=== PATIENT | female | born 1980 | race African-American/Black ===

== ENCOUNTER 2016-11-24 06:28 | Emergency (ER) | payer SELFPAY ==
[2016-11-24] MEDS ORDERED: NORMAL SALINE 1000 ML 1,000 ML IV ONE ×2 (06:58)
[2016-11-24] MEDS ORDERED: METOCLOPRAMIDE HCL INJ/PF 10 MG/2 ML SDV IV ONE (06:59)
[2016-11-24] MEDS ORDERED: MORPHINE SULFATE 10 MG/ML INJ IV ONE (06:59)
[2016-11-24] MEDS ORDERED: DIPHENHYDRAMINE HCL 50 MG/ML VIAL IV ONE (06:59)
[2016-11-24 07:12] LABS: ABSOLUTE LYMPHOCYTES (AUTO) 1.9 10^3/uL (0.5-4.7); ABSOLUTE MONOCYTES (AUTO) 0.3 10^3/uL (0.1-1.4); ABSOLUTE NEUT (AUTO) 7.2 10^3/uL (1.7-8.2); BASOPHILS % (AUTO) 0.3 % (0-2); HEMATOCRIT 44.1 % (36.0-47.0); HEMOGLOBIN 14.5 g/dL (12.0-15.5); HGB HCT DIFFERENCE -0.6; LYMPHOCYTES % (AUTO) 19.8 % (13-45); MEAN CORPUSCULAR HEMOGLOBIN 29.4 pg (27.0-33.4); MEAN CORPUSCULAR VOLUME 89 fl (80-97); MONOCYTES % (AUTO) 3.3 % (3-13); RED BLOOD COUNT 4.95 10^6/uL (3.72-5.28); RED CELL DISTRIBUTION WIDTH 13.2 % (11.5-14.0); SEGMENTED NEUTROPHILS % (AUTO) 76.6 % (42-78); WHITE BLOOD COUNT 9.4 10^3/uL (4.0-10.5)
[2016-11-24 07:24] LABS: ALANINE AMINOTRANSFERASE 29 U/L (9-52); ALBUMIN 4.8 g/dL (3.5-5.0); ALKALINE PHOSPHATASE 70 U/L (38-126); ANION GAP 16 (5-19); ASPARTATE AMINO TRANSFERASE 24 U/L (14-36); BILIRUBIN,TOTAL 0.9 mg/dL (0.2-1.3); BLOOD UREA NITROGEN 13 mg/dL (7-20); CALCIUM 10.6 mg/dL (8.4-10.2); CARBON DIOXIDE 24 mmol/L (22-30); CHLORIDE 101 mmol/L (98-107); CREATININE RESULT 0.88 mg/dL (0.52-1.25); GLUCOSE 129 mg/dL (75-110); POTASSIUM 3.5 mmol/L (3.6-5.0)
[2016-11-24] MEDS ORDERED: FAMOTIDINE INJ/PF 20 MG/2 ML SDV IV ONE (07:45)
--- NOTE | 2016-11-24 07:47 | ER Document Report ---
ED General - General Chief Complaint: Nausea/Vomiting/Diarrhea Stated Complaint: NAUSEA,VOMITING TRAVEL OUTSIDE OF THE [place] IN LAST 30 DAYS: No - HPI Patient complains to provider of: nausea vomiting diarrhea epigastric abdominal pain Notes: Patient coming in with nausea vomiting diarrhea ongoing since last night after eating a sotelo sandwich. Patient also states night prior to arrival did have 2 shots of alcohol. Patient denies any abdominal surgeries in the past except for C-sections. Patient states having nausea vomiting diarrhea no recent antibiotics no recent travel. Patient denies any past medical history. Denies any sick contacts - Related Data Allergies/Adverse Reactions: Penicillins Allergy (Intermediate, Verified 11/24/16 08:48) vomiting and hives Sulfa (Sulfonamide Antibiotics) Adverse Reaction (Verified 11/24/16 08:48) Past Medical History - Social History Smoking Status: Unknown if Ever Smoked Family History: Reviewed & Not Pertinent Pulmonary Medical History: Denies: Hx Tuberculosis Neurological Medical History: Reports: Hx Migraine, Hx Seizures - x1 with Renal/ Medical History: Denies: Hx Peritoneal Dialysis GI Medical History: Reports: Hx Gastroesophageal Reflux Disease. Denies: Hx Gastritis Past Surgical History: Reports: Hx Section, Hx Tubal Ligation. Denies : Hx Pacemaker - Immunizations Hx Diphtheria, Pertussis, Tetanus Vaccination: Yes Review of Systems - Review of Systems Constitutional: No symptoms reported EENT: No symptoms reported Cardiovascular: No symptoms reported Respiratory: No symptoms reported Gastrointestinal: Abdominal pain, Nausea, Vomiting Genitourinary: No symptoms reported Female Genitourinary: No symptoms reported Musculoskeletal: No symptoms reported Skin: No symptoms reported Hematologic/Lymphatic: No symptoms reported Neurological/Psychological: No symptoms reported -: Yes All other systems reviewed and negative Physical Exam - Vital signs Vitals: Temp Pulse Resp BP Pulse Ox 98.3 F 58 L 16 125/61 99 11/24/16 07:23 11/24/16 07:23 11/24/16 07:23 11/24/16 07:23 11/24/16 07:23 Interpretation: Normal - General General appearance: Appears well, Alert - HEENT Head: Normocephalic, Atraumatic Eyes: Normal Pupils: PERRL - Respiratory Respiratory status: No respiratory distress Chest status: Nontender Breath sounds: Normal Chest palpation: Normal - Cardiovascular Rhythm: Regular Heart sounds: Normal auscultation Murmur: No - Abdominal Inspection: Normal Distension: No distension Bowel sounds: Normal Tenderness: Tender - Mild epigastric tenderness to palpation. No right upper quadrant tenderness.. No: McBurney's point, Han's sign, Guarding, Rebound Organomegaly: No organomegaly - Back Back: Normal, Nontender - Extremities General upper extremity: Normal inspection, Nontender, Normal color, Normal ROM , Normal temperature General lower extremity: Normal inspection, Nontender, Normal color, Normal ROM , Normal temperature, Normal weight bearing. No: Melanie's sign - Neurological Neuro grossly intact: Yes Cognition: Normal Orientation: AAOx4 Terence Coma Scale Eye Opening: Spontaneous Terence Coma Scale Verbal: Oriented [place] Coma Scale Motor: Obeys Commands [place] Coma Scale Total: 15 Speech: Normal Motor strength normal: LUE, RUE, LLE, RLE Sensory: Normal - Psychological Associated symptoms: Normal affect, Normal mood - Skin Skin Temperature: Warm Skin Moisture: Dry Skin Color: Normal Course - Re-evaluation Re-evalutation: 11/24/16 14:55 The patient presents with n/v/d without signs of peritonitis or other life- threatening or serious etiology. The patient appears stable for discharge and has been instructed to return immediately if the symptoms worsen in any way, or in 8-12hr if not improved for re-evaluation. The patient has been instructed to return if the symptoms worsen or change in any way.. - Vital Signs Vital signs: Temp Pulse Resp BP Pulse Ox 98.3 F 68 16 114/72 99 11/24/16 07:23 11/24/16 09:25 11/24/16 09:25 11/24/16 09:25 11/24/16 09:25 - Laboratory Result Diagrams: 11/24/16 06:45 11/24/16 06:45 Laboratory results interpreted by me: 11/24/16 06:45 Potassium 3.5 L Glucose 129 H Calcium 10.6 H Discharge - Discharge Clinical Impression: Epigastric abdominal pain, Nausea vomiting and diarrhea Condition: Good Disposition: HOME, SELF-CARE Instructions: Abdominal Pain ([facility]), Gastritis ([facility]), Gastroenteritis (adult) ( [facility]) Additional Instructions: Please take medication as prescribed. Please observe a clear liquid diet for the next 12-24 hours. These avoid any food that is fried heavy and grease all or fat. Follow-up with your doctor next 3-5 days. Prescriptions: Dicyclomine HCl [Bentyl 20 mg Tablet] 20 mg PO QID #20 tablet Famotidine [Pepcid 20 mg Tablet] 20 mg PO BID #14 tablet Metoclopramide HCl [Reglan] 5 mg PO Q6 #30 tablet Forms: Return to Work
[2016-11-24 09:26] VITALS: BP 114/72
== END 2016-11-24 09:36 | disposition home or self-care (01) ==
LOC: ER 06:28
DX: R10.13 Epigastric pain (principal); R11.2 Nausea with vomiting, unspecified; R19.7 Diarrhea, unspecified; Z88.0 Allergy status to penicillin; Z88.2 Allergy status to sulfonamides; Z98.51 Tubal ligation status
CPT/HCPCS: 99284; 96374; 96375; 36415; 83690; 84703; 85025; 80053; J1200; J2765; J2270; J7030; S0028

== ENCOUNTER 2016-12-15 19:06 | Emergency (ER) | payer SELFPAY ==
--- NOTE | 2016-12-15 19:14 | ER Document Report ---
ED Medical Screen (RME) - General Stated Complaint: VOMITING AND DIARRHEA Notes: 36 yo female n/v/d since 0900 today. pt was seen for same earlier this month, Dx with colitis. pt received 250ml bolus and zofran 4mg IV TRAVEL OUTSIDE OF THE [place] IN LAST 30 DAYS: No - Related Data Allergies/Adverse Reactions: Penicillins Allergy (Intermediate, Verified 11/24/16 08:48) vomiting and hives Sulfa (Sulfonamide Antibiotics) Adverse Reaction (Verified 11/24/16 08:48) Past Medical History - Social History Family history: Reviewed & Not Pertinent Pulmonary Medical History: Denies: Hx Tuberculosis Neurological Medical History: Reports: Hx Migraine, Hx Seizures - x1 with Renal/ Medical History: Denies: Hx Peritoneal Dialysis GI Medical History: Reports: Hx Gastroesophageal Reflux Disease. Denies: Hx Gastritis Past Surgical History: Reports: Hx Section, Hx Tubal Ligation. Denies : Hx Pacemaker - Immunizations Hx Diphtheria, Pertussis, Tetanus Vaccination: Yes
== END 2016-12-15 19:27 | disposition left against medical advice (07) ==
LOC: ER 19:06
DX: R11.2 Nausea with vomiting, unspecified (principal); R19.7 Diarrhea, unspecified; Z87.19 Personal history of other diseases of the digestive system; Z88.0 Allergy status to penicillin; Z88.2 Allergy status to sulfonamides; Z53.20 Procedure and treatment not carried out because of patient's decision for unspecified reasons
CPT/HCPCS: 99281

== ENCOUNTER 2016-12-16 09:07 | Emergency (ER) | payer SELFPAY ==
[2016-12-16] MEDS ORDERED: ONDANSETRON HCL INJ/PF 4 MG/2 ML SDV IV ONE ×2 (10:47→14:26)
[2016-12-16] MEDS ORDERED: MORPHINE SULFATE 10 MG/ML INJ IV ONE (10:47)
[2016-12-16 11:36] LABS: APPEARANCE,URINE SLIGHTLY-CLOUDY; BILIRUBIN,URINE NEGATIVE (NEGATIVE); GLUCOSE, URINE NEGATIVE (NEGATIVE); KETONES,URINE 80 mg/dL (NEGATIVE); LEUKOCYTE ESTERASE,URINE NEGATIVE (NEGATIVE); NITRITE,URINE POSITIVE (NEGATIVE); PROTEIN,URINE 100 mg/dL (NEGATIVE); URINE SPECIFIC GRAVITY 1.032; UROBILINOGEN,URINE NEGATIVE mg/dL (<2.0)
[2016-12-16] MEDS ORDERED: CIPROFLOXACIN 200 MG/D5W RTU 100 ML IV ONE (11:45)
[2016-12-16] MEDS: NORMAL SALINE 1000 ML 1,000 ML IV PRN ×2 (12:03→13:14)
[2016-12-16 13:18] LABS: ABSOLUTE LYMPHOCYTES (AUTO) 1.3 10^3/uL (0.5-4.7); ABSOLUTE MONOCYTES (AUTO) 0.4 10^3/uL (0.1-1.4); BASOPHILS % (AUTO) 0.3 % (0-2); HEMATOCRIT 42.7 % (36.0-47.0); HEMOGLOBIN 14.1 g/dL (12.0-15.5); HGB HCT DIFFERENCE -0.4; LYMPHOCYTES % (AUTO) 17.2 % (13-45); MEAN CORPUSCULAR HEMOGLOBIN 29.2 pg (27.0-33.4); MEAN CORPUSCULAR VOLUME 88 fl (80-97); MONOCYTES % (AUTO) 4.8 % (3-13); RED BLOOD COUNT 4.83 10^6/uL (3.72-5.28); RED CELL DISTRIBUTION WIDTH 13.5 % (11.5-14.0); SEGMENTED NEUTROPHILS % (AUTO) 77.7 % (42-78); WHITE BLOOD COUNT 7.7 10^3/uL (4.0-10.5)
[2016-12-16 13:39] LABS: ALANINE AMINOTRANSFERASE 34 U/L (9-52); ALBUMIN 4.4 g/dL (3.5-5.0); ALKALINE PHOSPHATASE 60 U/L (38-126); ANION GAP 15 (5-19); ASPARTATE AMINO TRANSFERASE 16 U/L (14-36); BILIRUBIN,DIRECT 0.2 mg/dL (0.0-0.4); BILIRUBIN,TOTAL 0.6 mg/dL (0.2-1.3); BLOOD UREA NITROGEN 12 mg/dL (7-20); CARBON DIOXIDE 22 mmol/L (22-30); CHLORIDE 105 mmol/L (98-107); CREATININE RESULT 0.83 mg/dL (0.52-1.25); GLUCOSE 98 mg/dL (75-110); POTASSIUM 4.1 mmol/L (3.6-5.0); SODIUM 142.4 mmol/L (137-145); TOTAL PROTEIN 6.8 g/dL (6.3-8.2)
[2016-12-16 13:40] LABS: CALCIUM 9.3 mg/dL (8.4-10.2)
--- NOTE | 2016-12-16 15:03 | ER Document Report ---
ED General - General Chief Complaint: Abdominal Injury Stated Complaint: FLU LIKE SYMPTOMS TRAVEL OUTSIDE OF THE [place] IN LAST 30 DAYS: No - Related Data Allergies/Adverse Reactions: Penicillins Allergy (Intermediate, Verified 12/16/16 09:22) vomiting and hives Sulfa (Sulfonamide Antibiotics) Adverse Reaction (Verified 12/16/16 09:22) Past Medical History - Social History Smoking Status: Current Every Day Smoker Chew tobacco use (# tins/day): No Frequency of alcohol use: None Drug Abuse: None Family History: Reviewed & Not Pertinent Patient has suicidal ideation: No Patient has homicidal ideation: No Pulmonary Medical History: Denies: Hx Tuberculosis Neurological Medical History: Reports: Hx Migraine, Hx Seizures - x1 with Renal/ Medical History: Denies: Hx Peritoneal Dialysis GI Medical History: Reports: Hx Gastroesophageal Reflux Disease. Denies: Hx Gastritis Past Surgical History: Reports: Hx Section, Hx Tubal Ligation. Denies : Hx Pacemaker - Immunizations Hx Diphtheria, Pertussis, Tetanus Vaccination: Yes Physical Exam - Vital signs Vitals: Temp Pulse Resp BP Pulse Ox 98.3 F 74 18 125/92 H 100 12/16/16 09:17 12/16/16 09:17 12/16/16 09:17 12/16/16 09:17 12/16/16 09:17 Course - Vital Signs Vital signs: Temp Pulse Resp BP Pulse Ox 98.3 F 74 18 125/92 H 100 12/16/16 09:17 12/16/16 09:17 12/16/16 09:49 12/16/16 09:17 12/16/16 09:17 - Laboratory Result Diagrams: 12/16/16 12:53 12/16/16 12:53 Laboratory results interpreted by me: 12/16/16 11:00 Urine Protein 100 H Urine Ketones 80 H Urine Nitrite POSITIVE H Discharge - Discharge Clinical Impression: Abdominal pain Qualifiers: Abdominal location: unspecified location Qualified Code(s): R10.9 - Unspecified abdominal pain Nausea & vomiting Qualifiers: Vomiting type: unspecified Vomiting Intractability: non-intractable Qualified Code(s): R11.2 - Nausea with vomiting, unspecified UTI (urinary tract infection) Qualifiers: Urinary tract infection type: acute cystitis Hematuria presence: without hematuria Qualified Code(s): N30.00 - Acute cystitis without hematuria Condition: Stable Disposition: HOME, SELF-CARE Instructions: Abdominal Pain ([facility]) Additional Instructions: Follow up with your physician tomorrow for further care or return to the ED IMMEDIATELY if symptoms worsen or new concerns occur Prescriptions: Ciprofloxacin HCl [Cipro 500 mg Tablet] 500 mg PO BID #14 tablet Naproxen 500 mg PO BID #20 tablet Ondansetron [Zofran Odt 4 mg Tablet] 1 - 2 tab PO Q4H PRN #15 tab.rapdis PRN Reason: For Nausea/Vomiting
[2016-12-16 15:16] VITALS: BP 128/68
== END 2016-12-16 15:16 | disposition home or self-care (01) ==
LOC: ER 09:07
DX: N30.00 Acute cystitis without hematuria (principal); R10.9 Unspecified abdominal pain; R11.2 Nausea with vomiting, unspecified; F17.200 Nicotine dependence, unspecified, uncomplicated; Z87.19 Personal history of other diseases of the digestive system; Z88.0 Allergy status to penicillin; Z88.2 Allergy status to sulfonamides; Z98.51 Tubal ligation status
CPT/HCPCS: 96376; 99283; 96361; 96375; 96365; 36415; 85025; 81025; 80053; 81001; J2270; J2405; J7030; J0744

== ENCOUNTER 2016-12-17 09:52 | Emergency (ER) | payer SELFPAY ==
[2016-12-17 10:09] VITALS: BP 148/91
[2016-12-17] MEDS ORDERED: ONDANSETRON 4 MG TAB.RAPDIS PO ONE ×2 (10:11→12:14)
--- NOTE | 2016-12-17 10:12 | ER Document Report ---
ED Medical Screen (RME) - General Chief Complaint: Vomiting Stated Complaint: VOMITING Notes: Patient complains of vomiting and diarrhea for 3 days. States fever of 99. Patient was seen here yesterday for same symptoms. States she is still unable to keep anything down. I have greeted and performed a rapid initial assessment of this patient. A comprehensive ED assessment and evaluation of the patient, analysis of test results and completion of the medical decision making process will be conducted by additional ED providers. TRAVEL OUTSIDE OF THE [place] IN LAST 30 DAYS: No - Related Data Allergies/Adverse Reactions: Penicillins Allergy (Intermediate, Verified 12/17/16 10:09) vomiting and hives Sulfa (Sulfonamide Antibiotics) Adverse Reaction (Verified 12/17/16 10:09) Past Medical History - Social History Family history: Reviewed & Not Pertinent Pulmonary Medical History: Denies: Hx Tuberculosis Neurological Medical History: Reports: Hx Migraine, Hx Seizures - x1 with Renal/ Medical History: Denies: Hx Peritoneal Dialysis GI Medical History: Reports: Hx Gastroesophageal Reflux Disease. Denies: Hx Gastritis Past Surgical History: Reports: Hx Section, Hx Tubal Ligation. Denies : Hx Pacemaker - Immunizations Hx Diphtheria, Pertussis, Tetanus Vaccination: Yes Physical Exam - Vital signs Vitals: Temp Pulse Resp BP Pulse Ox 98.2 F 55 L 14 148/91 H 100 12/17/16 10:08 12/17/16 10:08 12/17/16 10:08 12/17/16 10:08 12/17/16 10:08 Course - Vital Signs Vital signs: Temp Pulse Resp BP Pulse Ox 98.2 F 55 L 14 148/91 H 100 12/17/16 10:08 12/17/16 10:08 12/17/16 10:08 12/17/16 10:08 12/17/16 10:08
[2016-12-17] MEDS ORDERED: METOCLOPRAMIDE HCL INJ/PF 10 MG/2 ML SDV IV ONE (12:14)
[2016-12-17] MEDS ORDERED: NORMAL SALINE 1000 ML 2,000 ML IV ONE (12:14)
[2016-12-17] MEDS ORDERED: DIPHENHYDRAMINE HCL 50 MG/ML VIAL IV ONE (12:14)
[2016-12-17] MEDS ORDERED: PROMETHAZINE HCL 25 MG SUPP.RECT PR ONE (13:43)
--- NOTE | 2016-12-17 13:45 | ER Document Report ---
ED GI/ - General Chief Complaint: Vomiting Stated Complaint: VOMITING Time seen by provider: 12:40 Mode of Arrival: Ambulatory Information source: Patient Notes: 36 yo thin female c/o persistant vomiting. in eryesterday, got IV fluid and cipro for UTI. No culture sent. No abdominal pain. HCG negative. TRAVEL OUTSIDE OF THE [place] IN LAST 30 DAYS: No - Related Data Allergies/Adverse Reactions: Penicillins Allergy (Intermediate, Verified 12/17/16 10:09) vomiting and hives Sulfa (Sulfonamide Antibiotics) Adverse Reaction (Verified 12/17/16 10:09) Past Medical History - General Information source: Patient - Social History Smoking Status: Current Every Day Smoker Chew tobacco use (# tins/day): No Frequency of alcohol use: Occasional Drug Abuse: None Family History: Reviewed & Not Pertinent Patient has suicidal ideation: No Patient has homicidal ideation: No Pulmonary Medical History: Denies: Hx Tuberculosis Neurological Medical History: Reports: Hx Migraine, Hx Seizures - x1 with Renal/ Medical History: Denies: Hx Peritoneal Dialysis GI Medical History: Reports: Hx Gastroesophageal Reflux Disease. Denies: Hx Gastritis Past Surgical History: Reports: Hx Section, Hx Tubal Ligation. Denies : Hx Pacemaker - Immunizations Hx Diphtheria, Pertussis, Tetanus Vaccination: Yes Review of Systems - Review of Systems Constitutional: No symptoms reported EENT: No symptoms reported Cardiovascular: No symptoms reported Respiratory: No symptoms reported Gastrointestinal: See HPI Genitourinary: No symptoms reported Female Genitourinary: No symptoms reported Musculoskeletal: No symptoms reported Skin: No symptoms reported Hematologic/Lymphatic: No symptoms reported Neurological/Psychological: No symptoms reported Physical Exam - Vital signs Vitals: Temp Pulse Resp BP Pulse Ox 98.2 F 55 L 14 148/91 H 100 12/17/16 10:08 12/17/16 10:08 12/17/16 10:08 12/17/16 10:08 12/17/16 10:08 Interpretation: Normal - Notes Notes: curled in ball on left side - General General appearance: Appears well, Alert - HEENT Head: Normocephalic, Atraumatic Eyes: Normal Pupils: PERRL Mucous membranes: Normal Pharynx: Normal Neck: Supple - Respiratory Respiratory status: No respiratory distress Chest status: Nontender Breath sounds: Normal Chest palpation: Normal - Cardiovascular Rhythm: Regular Heart sounds: Normal auscultation Murmur: No - Abdominal Inspection: Normal Distension: No distension Bowel sounds: Normal Tenderness: Nontender. No: Tender Organomegaly: No organomegaly - Back Back: Normal, Nontender. No: CVA tenderness - Extremities General upper extremity: Normal inspection, Nontender, Normal color, Normal ROM , Normal temperature General lower extremity: Normal inspection, Nontender, Normal color, Normal ROM , Normal temperature, Normal weight bearing. No: Melanie's sign - Neurological Neuro grossly intact: Yes Cognition: Normal Orientation: AAOx4 Terence Coma Scale Eye Opening: Spontaneous [place] Coma Scale Verbal: Oriented [place] Coma Scale Motor: Obeys Commands [place] Coma Scale Total: 15 Speech: Normal Motor strength normal: LUE, RUE, LLE, RLE Sensory: Normal - Psychological Associated symptoms: Normal affect, Normal mood - Skin Skin Temperature: Warm Skin Moisture: Dry Skin Color: Normal Course - Re-evaluation Re-evalutation: 12/17/16 13:49 Patient states that she can't keep anything down but the urine is dilute that she obtained in the bathroom. I will give her some fluid and antiemetics. Added a urine drug screen because in the past she had used multiple substances in 2014. She states that she needs pain medication at this time. The physician that saw her yesterday and hydrated her did not prescribe pain medication nor will I and I told her that. 12/17/16 14:49 Keeping water down wants to go home 12/17/16 14:53 Patient was diagnosed with urinary tract infection yesterday but there is no bacteria in the urine today I did add a urine culture from the urine today and will DC the Cipro. No pending urine culture from yesterday. Patient stated that she did not keep the Cipro down. 12/17/16 15:01 Patient admits to snorting cocaine twice a week. no vomiting while in ER - Vital Signs Vital signs: Temp Pulse Resp BP Pulse Ox 99.1 F 63 16 148/91 H 98 12/17/16 15:06 12/17/16 15:06 12/17/16 15:06 12/17/16 10:08 12/17/16 15:06 - Laboratory Result Diagrams: 12/17/16 14:13 12/17/16 14:13 Laboratory results interpreted by me: 12/17/16 12/17/16 13:46 14:13 Seg Neutrophils % 85.8 H Lymphocytes % 12.1 L Monocytes % 1.6 L Urine Ketones 20 H Urine Blood SMALL H Discharge - Discharge Clinical Impression: vomiting, myalgias, Cocaine abuse Condition: Good Disposition: HOME, SELF-CARE Instructions: Myalagia (Muscle Pain) ([facility]), Nausea or Vomiting, Nonspecific ( [facility]), Cocaine Abuse ([facility]) Additional Instructions: continue to hydrate advance diet as tolerated urine culture is pending stop the cipro, your urine today did not show infection Return to the emergency room any concerns stop using cocaine Please complete the patient satisfaction survey if you get one, and return it.. If you do not receive a survey, then you can go to the [facility] website, [email or web address] and place your comments about your very good care. Thank you very much. It was a pleasure being your medical provider today. Prescriptions: Promethazine HCl [Phenergan 25 mg Supp.rect] 25 mg AR Q4HP PRN #24 supp.rect PRN Reason: Forms: Return to Work
[2016-12-17] MEDS ORDERED: MAG HYDROX/AL HYDROX/SIMETH SUSP 30 ML UDCUP PO ONE (13:47)
[2016-12-17] MEDS ORDERED: LIDOCAINE 2% VISCOUS SOLN 20 ML UDCUP PO ONE (13:47)
[2016-12-17] MEDS ORDERED: LANSOPRAZOLE 30 MG TAB.RAP.DR PO ONE (13:47)
[2016-12-17 14:10] LABS: APPEARANCE,URINE CLEAR; BILIRUBIN,URINE NEGATIVE (NEGATIVE); GLUCOSE, URINE NEGATIVE (NEGATIVE); KETONES,URINE 20 mg/dL (NEGATIVE); LEUKOCYTE ESTERASE,URINE NEGATIVE (NEGATIVE); NITRITE,URINE NEGATIVE (NEGATIVE); PROTEIN,URINE NEGATIVE (NEGATIVE); URINE SPECIFIC GRAVITY 1.011; UROBILINOGEN,URINE NEGATIVE mg/dL (<2.0)
[2016-12-17 14:24] LABS: ABSOLUTE LYMPHOCYTES (AUTO) 0.8 10^3/uL (0.5-4.7); ABSOLUTE MONOCYTES (AUTO) 0.1 10^3/uL (0.1-1.4); BASOPHILS % (AUTO) 0.4 % (0-2); EOSINOPHILS % (AUTO) 0.1 % (0-6); HEMATOCRIT 42.3 % (36.0-47.0); HEMOGLOBIN 14.1 g/dL (12.0-15.5); LYMPHOCYTES % (AUTO) 12.1 % (13-45); MEAN CORPUSCULAR HEMOGLOBIN 29.3 pg (27.0-33.4); MEAN CORPUSCULAR HGB CONC 33.3 g/dL (32.0-36.0); MEAN CORPUSCULAR VOLUME 88 fl (80-97); MONOCYTES % (AUTO) 1.6 % (3-13); RED BLOOD COUNT 4.79 10^6/uL (3.72-5.28); RED CELL DISTRIBUTION WIDTH 13.5 % (11.5-14.0); SEGMENTED NEUTROPHILS % (AUTO) 85.8 % (42-78)
[2016-12-17 14:45] LABS: URINE BARBITURATES SCREEN NEGATIVE; URINE METHADONE SCREEN NEGATIVE; URINE OPIATES LOW NEGATIVE; URINE PHENCYCLIDINE SCREEN NEGATIVE
[2016-12-17] MEDS ORDERED: CIPROFLOXACIN HCL 500 MG TABLET PO ONE (14:49)
[2016-12-17 14:56] LABS: ALANINE AMINOTRANSFERASE 34 U/L (9-52); ALBUMIN 4.9 g/dL (3.5-5.0); ALKALINE PHOSPHATASE 61 U/L (38-126); ANION GAP 14 (5-19); ASPARTATE AMINO TRANSFERASE 20 U/L (14-36); BILIRUBIN,DIRECT 0.2 mg/dL (0.0-0.4); BILIRUBIN,TOTAL 0.8 mg/dL (0.2-1.3); BLOOD UREA NITROGEN 10 mg/dL (7-20); CARBON DIOXIDE 25 mmol/L (22-30); CHLORIDE 103 mmol/L (98-107); GLUCOSE 104 mg/dL (75-110); POTASSIUM 4.1 mmol/L (3.6-5.0); SODIUM 142.1 mmol/L (137-145); TOTAL PROTEIN 7.6 g/dL (6.3-8.2)
== END 2016-12-17 15:07 | disposition home or self-care (01) ==
LOC: ER 09:52
DX: R11.10 Vomiting, unspecified (principal); F14.10 Cocaine abuse, uncomplicated; M79.1 Myalgia; F17.200 Nicotine dependence, unspecified, uncomplicated; Z88.0 Allergy status to penicillin; Z87.19 Personal history of other diseases of the digestive system; Z98.51 Tubal ligation status
CPT/HCPCS: 99283; 96361; 96374; 96375; 36415; 87086; 85025; 80053; 81001; 80307; J1200; S0119; J3490 ×2; J2765; J7030

== ENCOUNTER 2017-10-02 07:10 | Inpatient (IN) | payer MEDICAID ==
[2017-10-02] MEDS ORDERED: ONDANSETRON 4 MG TAB.RAPDIS PO ONE ×2 (07:28→11:56)
[2017-10-02] MEDS ORDERED: NORMAL SALINE 1000 ML 2,000 ML IV ONE (07:28)
--- NOTE | 2017-10-02 07:29 | ER Document Report ---
ED GI/ - General Chief Complaint: Nausea/Vomiting/Diarrhea Stated Complaint: ABDOMINAL PAIN,VOMITING Time Seen by Provider: 10/02/17 07:28 Mode of Arrival: Ambulatory Information source: Patient Notes: 37-year-old thin tobacco and crack smoker female complaining of epigastric and left upper quadrant pain since 7 PM last night, vomited all night with diarrhea. Took Kelsy-[place] and Imodium without relief. History of gastritis. No history of cholecystitis or pancreatitis. 2 C-sections. No fever. Menses - now. TRAVEL OUTSIDE OF THE [place] IN LAST 30 DAYS: No - Related Data Allergies/Adverse Reactions: Penicillins Allergy (Intermediate, Verified 10/02/17 07:13) vomiting and hives Sulfa (Sulfonamide Antibiotics) Adverse Reaction (Verified 10/02/17 07:13) Home Medications: Current Home Medications No Home Medications 10/02/17 [History] Past Medical History - General Information source: Patient - Social History Smoking Status: Current Every Day Smoker Frequency of alcohol use: None Drug Abuse: Cocaine - Crack Lives with: Family Family History: Reviewed & Not Pertinent Neurological Medical History: Reports: Hx Migraine, Hx Seizures - x1 with Renal/ Medical History: Denies: Hx Peritoneal Dialysis GI Medical History: Reports: Hx Gastritis, Hx Gastroesophageal Reflux Disease - egd dr villanueva 2 years ago, Hx Colonoscopy - dr villanueva - polyps Past Surgical History: Reports: Hx Section - x 2, Hx Tubal Ligation. Denies: Hx Pacemaker - Immunizations Hx Diphtheria, Pertussis, Tetanus Vaccination: Yes Review of Systems - Review of Systems Constitutional: No symptoms reported EENT: No symptoms reported Cardiovascular: No symptoms reported Respiratory: No symptoms reported Gastrointestinal: See HPI Genitourinary: No symptoms reported Female Genitourinary: No symptoms reported Musculoskeletal: No symptoms reported Skin: No symptoms reported Hematologic/Lymphatic: No symptoms reported Neurological/Psychological: No symptoms reported Physical Exam - Vital signs Vitals: Temp Pulse Resp BP Pulse Ox 98.1 F 56 L 20 144/87 H 100 10/02/17 07:15 10/02/17 07:15 10/02/17 07:15 10/02/17 07:15 10/02/17 07:15 Interpretation: Bradycardic Notes: emaciated - General General appearance: Alert - HEENT Head: Normocephalic, Atraumatic Eyes: Normal Conjunctiva: Normal Pupils: PERRL Mucous membranes: Dry Pharynx: Normal Neck: Supple. No: Lymphadenopathy - Respiratory Respiratory status: No respiratory distress Chest status: Nontender Breath sounds: Normal Chest palpation: Normal - Cardiovascular Rhythm: Regular Heart sounds: Normal auscultation Murmur: No - Abdominal Inspection: Normal Distension: No distension Bowel sounds: Normal Tenderness: Tender - epigastric, LUQ Organomegaly: No organomegaly - Back Back: Normal, Nontender. No: CVA tenderness - Extremities General upper extremity: Normal inspection, Nontender, Normal color, Normal ROM , Normal temperature General lower extremity: Normal inspection, Nontender, Normal color, Normal ROM , Normal temperature, Normal weight bearing. No: Melanie's sign - Neurological Neuro grossly intact: Yes Cognition: Normal Orientation: AAOx4 Terence Coma Scale Eye Opening: Spontaneous [place] Coma Scale Verbal: Oriented [place] Coma Scale Motor: Obeys Commands [place] Coma Scale Total: 15 Speech: Normal Motor strength normal: LUE, RUE, LLE, RLE Sensory: Normal - Psychological Associated symptoms: Normal affect, Normal mood - Skin Skin Temperature: Warm Skin Moisture: Dry Skin Color: Normal Skin irregularity: negative: Rash Course - Re-evaluation Re-evalutation: 10/02/17 08:53 pt denies IV drug use but multiple tiny crusted punctures sites in left arm veins, no recent hospitalization or blood draw per pt. Mother at bedside. 10/02/17 11:47 Urine not obtained until 1110 this morning. Her hem/chem labs are negative. 10/02/17 11:55 With mom not in the room patient admits to heroin IV drug use 3 weeks ago. Will try PO's mild nausea, feels better. Non tender abdomen. 10/02/17 12:41 no vomiting or diarrhea while in the ER, will send home with antiemetics. 10/02/17 13:42 pt vomiting again, IV fluid, reglan, benadryl and AAS ordered to check for ileus /obstruction. 10/02/17 16:17 will try pt on po's again, last cocaine and marijuana was tuesday, no heroin for 3 weeks - went through withdrawal at that time. 10/02/17 16:28 dr. belle will admit observation to medical floor. Very nauseated again after a few sips of PO's. 10/02/17 16:30 - Vital Signs Vital signs: Temp Pulse Resp BP Pulse Ox 99.7 F 60 16 139/86 H 100 10/02/17 14:00 10/02/17 14:00 10/02/17 14:00 10/02/17 14:00 10/02/17 14:00 - Laboratory Result Diagrams: 10/02/17 09:38 10/02/17 09:38 Laboratory results interpreted by me: 10/02/17 10/02/17 10/02/17 09:38 09:38 11:10 RDW 14.8 H Seg Neutrophils % 88.6 H Lymphocytes % 8.6 L Monocytes % 2.3 L Glucose 120 H Urine Ketones TRACE H Urine Blood SMALL H Discharge - Discharge Clinical Impression: Vomiting and diarrhea, Polysubstance abuse, Upper abdominal pain Intractable vomiting Qualifiers: Vomiting type: unspecified Nausea presence: with nausea Qualified Code(s): R11.2 - Nausea with vomiting, unspecified Condition: Stable Disposition: ADMITTED OBSERVATION Admitting Provider: Hospitalist Unit Admitted: Medical Floor Instructions: Antinausea Medication ([facility]), Diarrhea, Nonspecific ([facility]), Intravenous (IV) Fluids ([facility]), Vomiting ([facility]) Additional Instructions: continue to hydrate at home nausea medication as needed to er if worse stop using crack cocain and marijuana. see dr villanueva if recurs, persists Referrals: LIZA VILLANUEVA MD [ACTIVE STAFF] - Follow up as needed
[2017-10-02] MEDS ORDERED: LANSOPRAZOLE 30 MG TAB.RAP.DR PO ONE (07:42)
[2017-10-02] MEDS ORDERED: FAMOTIDINE INJ/PF 20 MG/2 ML SDV IV ONE (07:42)
[2017-10-02] MEDS ORDERED: MORPHINE SULFATE 10 MG/ML INJ IV ONE ×2 (07:43→13:52)
[2017-10-02 09:51] LABS: ABSOLUTE LYMPHOCYTES (AUTO) 0.6 10^3/uL (0.5-4.7); ABSOLUTE MONOCYTES (AUTO) 0.2 10^3/uL (0.1-1.4); ABSOLUTE NEUT (AUTO) 5.8 10^3/uL (1.7-8.2); BASOPHILS % (AUTO) 0.5 % (0-2); HEMATOCRIT 39.1 % (36.0-47.0); HEMOGLOBIN 12.8 g/dL (12.0-15.5); LYMPHOCYTES % (AUTO) 8.6 % (13-45); MEAN CORPUSCULAR HEMOGLOBIN 28.8 pg (27.0-33.4); MEAN CORPUSCULAR HGB CONC 32.7 g/dL (32.0-36.0); MEAN CORPUSCULAR VOLUME 88 fl (80-97); MONOCYTES % (AUTO) 2.3 % (3-13); PLATELET COUNT 273 10^3/uL (150-450); RED BLOOD COUNT 4.45 10^6/uL (3.72-5.28); RED CELL DISTRIBUTION WIDTH 14.8 % (11.5-14.0); SEGMENTED NEUTROPHILS % (AUTO) 88.6 % (42-78); TOTAL CELLS COUNTED % (AUTO) 100 %; WHITE BLOOD COUNT 6.6 10^3/uL (4.0-10.5)
[2017-10-02 10:07] LABS: ALANINE AMINOTRANSFERASE 39 U/L (9-52); ALKALINE PHOSPHATASE 60 U/L (38-126); ANION GAP 12 (5-19); ASPARTATE AMINO TRANSFERASE 15 U/L (14-36); BILIRUBIN,DIRECT 0.2 mg/dL (0.0-0.4); BILIRUBIN,TOTAL 0.4 mg/dL (0.2-1.3); BLOOD UREA NITROGEN 13 mg/dL (7-20); CALCIUM 9.2 mg/dL (8.4-10.2); CARBON DIOXIDE 24 mmol/L (22-30); CHLORIDE 107 mmol/L (98-107); GLUCOSE 120 mg/dL (75-110); LIPASE 23.3 U/L (23-300); POTASSIUM 4.4 mmol/L (3.6-5.0); SODIUM 142.5 mmol/L (137-145); TOTAL PROTEIN 6.9 g/dL (6.3-8.2)
[2017-10-02 10:09] LABS: ALCOHOL < 10 mg/dL (NONE DETECTED)
[2017-10-02 11:38] LABS: APPEARANCE,URINE CLEAR; BILIRUBIN,URINE NEGATIVE (NEGATIVE); COLOR,URINE YELLOW; GLUCOSE, URINE NEGATIVE (NEGATIVE); KETONES,URINE TRACE mg/dL (NEGATIVE); LEUKOCYTE ESTERASE,URINE NEGATIVE (NEGATIVE); NITRITE,URINE NEGATIVE (NEGATIVE); PROTEIN,URINE NEGATIVE (NEGATIVE); URINE SPECIFIC GRAVITY 1.017; UROBILINOGEN,URINE NEGATIVE mg/dL (<2.0)
[2017-10-02 11:52] LABS: URINE AMPHETAMINES SCREEN NEGATIVE; URINE BARBITURATES SCREEN NEGATIVE; URINE BENZODIAZEPINES SCREEN NEGATIVE; URINE COCAINE SCREEN UNCONFIRMED POSITIVE; URINE MARIJUANA (THC) SCREEN UNCONFIRMED POSITIVE; URINE METHADONE SCREEN NEGATIVE; URINE PHENCYCLIDINE SCREEN NEGATIVE
[2017-10-02] MEDS ORDERED: LIDOCAINE 2% VISCOUS SOLN 20 ML UDCUP PO ONE (13:12)
[2017-10-02] MEDS ORDERED: MAG HYDROX/AL HYDROX/SIMETH SUSP 30 ML UDCUP PO ONE (13:12)
[2017-10-02] MEDS ORDERED: METOCLOPRAMIDE HCL INJ/PF 10 MG/2 ML SDV IV ONE (13:41)
[2017-10-02] MEDS ORDERED: DIPHENHYDRAMINE HCL 50 MG/ML VIAL IV ONE (13:41)
[2017-10-02] MEDS ORDERED: NORMAL SALINE 1000 ML 1,000 ML IV ONE (13:42)
--- NOTE | 2017-10-02 14:26 | RADIOLOGY REPORT (SQ) ---
EXAM DESCRIPTION: ACUTE ABDOMEN SERIES COMPLETED DATE/TIME: 10/02/2017 2:19 pm REASON FOR STUDY: intractable vomiting COMPARISON: None. NUMBER OF VIEWS: Three views. TECHNIQUE: Frontal chest, supine abdomen and upright/decubitus abdomen radiographic images acquired. LIMITATIONS: None. FINDINGS: CHEST: Lungs clear of infiltrates. FREE AIR: None. No abnormal gas collections. BOWEL GAS PATTERN: Nonobstructive pattern. No dilated loops or air fluid levels. CALCIFICATIONS: No suspicious calcifications. HARDWARE: None in the abdomen. SOFT TISSUES: No gross mass or suggestion of organomegaly. BONES: No acute fracture. No worrisome bone lesions. OTHER: No other significant finding. IMPRESSION: NO RADIOGRAPHIC EVIDENCE FOR ACUTE ABDOMINAL DISEASE. TECHNICAL DOCUMENTATION: JOB ID: [id number] [employer]- All Rights Reserved
--- NOTE | 2017-10-02 15:38 | RADIOLOGY REPORT (SQ) ---
EXAM DESCRIPTION: U/S ABDOMEN LIMITED W/O DOP COMPLETED DATE/TIME: 10/02/2017 3:22 pm REASON FOR STUDY: Bilious vomiting, epigastric pain COMPARISON: CT abdomen and pelvis 12/03/2015. TECHNIQUE: Grayscale images acquired of the abdomen and recorded on PACS. Additional selected color Doppler and spectral images recorded. LIMITATIONS: Overlying bowel gas. FINDINGS: PANCREAS: The pancreas is partially obscured by overlying bowel gas. The visualized pancr eas in the midline is unremarkable. LIVER: The liver measures 14.9 cm. Echotexture normal. LIVER VASCULATURE: Normal directional flow of the main portal vein. GALLBLADDER: No stones. Normal wall thickness. No pericholecystic fluid. ULTRASOUND-DETECTED ROME'S SIGN: Negative. INTRAHEPATIC DUCTS AND COMMON DUCT: CBD and intrahepatic ducts normal caliber. INFERIOR VENA CAVA: Pa tent. AORTA: No aneurysm in the visualized segments. RIGHT KIDNEY: Measures 11.7 cm in length. Echotexture within normal limits. No hydronephrosis. PERITONEAL AND RIGHT PLEURAL SPACE: No ascites or effusion. IMPRESSION: No acute findings. No cholelithiasis or biliary ductal dilation. TECHNICAL DOCUMENTATION: JOB ID: [id number] [id number] [employer]- All Rights Reserved
[2017-10-02] MEDS ORDERED: ACETAMINOPHEN 325 MG TABLET PO PRN (17:10)
[2017-10-02] MEDS ORDERED: OLANZAPINE INJ/PF 10 MG SDV IM ONE (17:10)
[2017-10-02] MEDS ORDERED: ZOLPIDEM TARTRATE 5 MG TABLET PO PRN (17:10)
--- NOTE | 2017-10-02 17:57 | PDOC H&P ---
History of Present Illness Admission Date/PCP: 10/02/17 16:43 Patient complains of: Nausea, vomiting and watery diarrhea since yesterday History of Present Illness: JENNIFER CARPENTER is a 37 year old female presented to emergency room complaining of nausea, vomiting and diarrhea since yesterday at 7 PM. Patient denies any fever, chills or recent use of antibiotics. She had remain in emergency room for 7 hours but despite had not been able to tolerate oral intake. She admits that she had been using heroin but took herself off 3 weeks ago and went through withdrawal and accordingly is over it. However this week had been doing cocaine. Admits is under a lot of stress at home because of problems with her ex-. She has 4 children and 2 of them are in college. Since patient has not been able to tolerate oral intake our service was consulted and prompted to admit for further management. Past Medical History Cardiac Medical History: Reports: None Pulmonary Medical History: Denies: Tuberculosis EENT Medical History: Reports: None Neurological Medical History: Reports: Migraine, Seizures - x1 with Endocrine Medical History: Reports: None Renal/ Medical History: Reports: None Malignancy Medical History: Reports: None GI Medical History: Reports: None, Gastroesophageal Reflux Disease - egd dr villanueva 2 years ago Musculoskeltal Medical History: Reports: None Skin Medical History: Reports: None Psychiatric Medical History: Reports: Substance Abuse, Tobacco Dependency Traumatic Medical History: Reports: None Hematology: Reports: None Past Surgical History Past Surgical History: Reports: Section - x 2, Tubal Ligation Denies: Pacemaker Social History Lives with: Family Smoking Status: Current Every Day Smoker Hx Recreational Drug Use: No Hx Prescription Drug Abuse: No - Advance Directive Resuscitation Status: Full Code Family History Family History: Hypertension Parental Family History Reviewed: Yes Children Family History Reviewed: Yes Sibling(s) Family History Reviewed.: Yes Medication/Allergy Home Medications: No Home Medications 10/02/17 Allergies/Adverse Reactions: Penicillins Allergy (Intermediate, Verified 10/02/17 07:13) vomiting and hives Sulfa (Sulfonamide Antibiotics) Adverse Reaction (Verified 10/02/17 07:13) Review of Systems Constitutional: PRESENT: weakness Ears: PRESENT: hearing changes Nose, Mouth, and Throat: ABSENT: mouth pain, sore throat Cardiovascular: ABSENT: edema, orthropnea, palpitations Respiratory: ABSENT: cough, dyspnea Gastrointestinal: PRESENT: abdominal pain, diarrhea, nausea, vomiting Genitourinary: ABSENT: dysuria, hematuria Musculoskeletal: ABSENT: back pain, deformity, joint swelling Integumentary: ABSENT: pruritus, rash Neurological: ABSENT: focal weakness, numbness, paresthesias Psychiatric: PRESENT: depression Endocrine: ABSENT: menstrual abnormalities Hematologic/Lymphatic: ABSENT: easy bruising, lymphadenopathy Physical Exam Vital Signs: Temp Pulse Resp BP Pulse Ox 99.7 F 60 16 139/86 H 100 10/02/17 14:00 10/02/17 14:00 10/02/17 14:00 10/02/17 14:00 10/02/17 14:00 General appearance: PRESENT: no acute distress, cooperative, thin Head exam: PRESENT: atraumatic, normocephalic Eye exam: PRESENT: conjunctiva pink, EOMI, PERRLA Ear exam: PRESENT: normal external ear exam Mouth exam: PRESENT: dry mucosa Teeth exam: PRESENT: poor dentation Neck exam: PRESENT: full ROM. ABSENT: JVD, lymphadenopathy, tenderness, thyromegaly Respiratory exam: PRESENT: clear to auscultation camilo Cardiovascular exam: PRESENT: RRR. ABSENT: diastolic murmur, gallop, systolic murmur Vascular exam: PRESENT: normal capillary refill GI/Abdominal exam: PRESENT: normal bowel sounds, soft. ABSENT: distended, guarding, tenderness Extremities exam: PRESENT: full ROM. ABSENT: clubbing, joint swelling, pedal edema, tenderness Musculoskeletal exam: ABSENT: deformity, tenderness Neurological exam: PRESENT: alert, awake, oriented to person, oriented to place , oriented to time, oriented to situation, CN II-XII grossly intact Psychiatric exam: PRESENT: appropriate affect, normal mood Skin exam: PRESENT: normal color. ABSENT: petechiae Results Impressions: Acute Abdomen Series 10/02/17 13:42 IMPRESSION: NO RADIOGRAPHIC EVIDENCE FOR ACUTE ABDOMINAL DISEASE. Abdomen Ultrasound 10/02/17 13:51 IMPRESSION: No acute findings. No cholelithiasis or biliary ductal dilation. Assessment & Plan - Diagnosis (1) Gastroenteritis Is this a current diagnosis for this admission?: Yes Plan: We will continue IV fluids will order stool culture for C. difficile and stool culture. To order probiotics and Metamucil (2) Polysubstance abuse Is this a current diagnosis for this admission?: Yes Plan: Patient had been doing carrying around 3 weeks ago and she took herself off. She did some cocaine and she was advised to quit. Patient is on there are a lot of stress at home. (3) Nausea and vomiting Qualifiers: Vomiting type: bilious vomiting Qualified Code(s): R11.14 - Bilious vomiting Is this a current diagnosis for this admission?: Yes Plan: Will order Zyprexa 5 mg IM 1 for nausea. Will keep patient on IV fluids and antiemetics. To place patient on Protonix IV in order to prevent any Precious- [place] (4) Tobacco abuse Is this a current diagnosis for this admission?: Yes Plan: Patient has been advised to quit including dangers of COPD, heart attack, stroke , lung cancer. To place on nicotine patch (5) Elevated blood pressure reading Is this a current diagnosis for this admission?: Yes Plan: May be situational for now to monitor - Time Time Spent: 30 to 50 Minutes Smoking Cessation Education: 3 to 10 minutes Medications reviewed and adjusted accordingly: Yes Anticipated discharge: Home Within: within 24 hours - Inpatient Certification I certify that my determination is in accordance with my understanding of Medicare's requirements for reasonable and necessary INPATIENT services [42 CFR 412.3e].: Yes Medical Necessity: Need Close Monitoring Due to Risk of Patient Decompensation, Need For IV Fluids
[2017-10-02] MEDS: ONDANSETRON HCL INJ/PF 4 MG/2 ML SDV IV PRN (21:22)
[2017-10-02] MEDS: PANTOPRAZOLE SODIUM 40 MG VIAL IV SCH (22:34)
[2017-10-03] MEDS: POTASSI CL 20 MEQ/NS 1L 1,000 ML IV PRN ×2 (00:10→07:15)
[2017-10-03] MEDS: OXYCODONE-ACETAMINOPHEN 5-325 MG TABLET PO PRN ×4 (00:15→19:51)
[2017-10-03] MEDS: PROMETHAZINE HCL INJ 25 MG/1 ML VIAL IV PRN ×3 (00:15→14:16)
[2017-10-03] MEDS: LACTOBACILLUS ACIDOPHILUS 250 MG TAB PO SCH ×3 (00:18→17:45)
[2017-10-03] MEDS: PSYLLIUM SEED-SF 5.85 GM PACKET PO SCH ×3 (00:18→17:45)
[2017-10-03] MEDS: NICOTINE 14 MG/24 HR PATCH.TD24 TD SCH ×2 (00:18→17:45)
[2017-10-03] MEDS: ONDANSETRON HCL INJ/PF 4 MG/2 ML SDV IV PRN ×3 (03:11→19:51)
[2017-10-03] MEDS ORDERED: INFLUENZA ADLT QUAD (36MOS+) 2017-18 VAC 0.5 ML SYR IM PRN (03:59)
[2017-10-03 07:31] LABS: ANION GAP 12 (5-19); BLOOD UREA NITROGEN 6 mg/dL (7-20); CALCIUM 9.4 mg/dL (8.4-10.2); CARBON DIOXIDE 22 mmol/L (22-30); CHLORIDE 106 mmol/L (98-107); GLUCOSE 93 mg/dL (75-110); SODIUM 140.1 mmol/L (137-145)
[2017-10-03 07:36] LABS: ABSOLUTE LYMPHOCYTES (AUTO) 1.6 10^3/uL (0.5-4.7); ABSOLUTE MONOCYTES (AUTO) 0.5 10^3/uL (0.1-1.4); ABSOLUTE NEUT (AUTO) 5.5 10^3/uL (1.7-8.2); BASOPHILS % (AUTO) 0.4 % (0-2); EOSINOPHILS % (AUTO) 0.1 % (0-6); LYMPHOCYTES % (AUTO) 21.5 % (13-45); MEAN CORPUSCULAR HEMOGLOBIN 28.7 pg (27.0-33.4); MEAN CORPUSCULAR HGB CONC 33.3 g/dL (32.0-36.0); MEAN CORPUSCULAR VOLUME 86 fl (80-97); MONOCYTES % (AUTO) 6.1 % (3-13); PLATELET COUNT 255 10^3/uL (150-450); RED BLOOD COUNT 4.16 10^6/uL (3.72-5.28); RED CELL DISTRIBUTION WIDTH 14.4 % (11.5-14.0); SEGMENTED NEUTROPHILS % (AUTO) 71.9 % (42-78); TOTAL CELLS COUNTED % (AUTO) 100 %; WHITE BLOOD COUNT 7.6 10^3/uL (4.0-10.5)
[2017-10-03] MEDS: PANTOPRAZOLE SODIUM 40 MG VIAL IV SCH ×2 (09:43→22:02)
[2017-10-03] MEDS: ENOXAPARIN SODIUM INJ 40 MG/0.4 ML DISP.SYRIN SUBCUT SCH (09:43)
[2017-10-03] MEDS ORDERED: PROCHLORPERAZINE EDISYLATE INJ 10 MG/2 ML VIAL IV ONE (11:00)
--- NOTE | 2017-10-03 14:08 | PDOC PROGRESS REPORT ---
Subjective Progress Note for:: 10/03/17 Subjective:: Continues to endorse nausea and vomiting. Feels that anything she eats, ends up vomiting. Denies fevers, chills, CP, SOB, diarrhea. Asking for IV pain medications. Reason For Visit: GASTROENTERITIS, NAUSEA AND VOMITING, ELEVATED Physical Exam Vital Signs: Temp Pulse Resp BP Pulse Ox 97.7 F 62 18 173/56 H 98 10/03/17 12:00 10/03/17 12:00 10/03/17 12:00 10/03/17 12:00 10/03/17 12:00 Intake & Output 10/02/17 10/03/17 10/04/17 06:59 06:59 06:59 Intake Total 200 Balance 200 Weight 38.4 kg General appearance: PRESENT: mild distress - due to nausea, thin Head exam: PRESENT: normocephalic Mouth exam: PRESENT: moist Teeth exam: PRESENT: poor dentation Respiratory exam: PRESENT: unlabored. ABSENT: wheezes Cardiovascular exam: PRESENT: +S1, +S2 GI/Abdominal exam: PRESENT: soft, tenderness Neurological exam: PRESENT: alert, awake, CN II-XII grossly intact Psychiatric exam: PRESENT: appropriate affect Results Laboratory Results: 10/03/17 06:10 10/03/17 06:10 10/03/17 10/03/17 06:10 06:10 WBC 7.6 RBC 4.16 Hgb 12.0 Hct 36.0 MCV 86 MCH 28.7 MCHC 33.3 RDW 14.4 H Plt Count 255 Seg Neutrophils % 71.9 Lymphocytes % 21.5 Monocytes % 6.1 Eosinophils % 0.1 Basophils % 0.4 Absolute Neutrophils 5.5 Absolute Lymphocytes 1.6 Absolute Monocytes 0.5 Absolute Eosinophils 0.0 Absolute Basophils 0.0 Sodium 140.1 Potassium 4.0 Chloride 106 Carbon Dioxide 22 Anion Gap 12 BUN 6 L Creatinine 0.72 Est GFR ( Amer) > 60 Est GFR (Non-Af Amer) > 60 Glucose 93 Calcium 9.4 Magnesium 2.0 Impressions: Acute Abdomen Series 10/02/17 13:42 IMPRESSION: NO RADIOGRAPHIC EVIDENCE FOR ACUTE ABDOMINAL DISEASE. Abdomen Ultrasound 10/02/17 13:51 IMPRESSION: No acute findings. No cholelithiasis or biliary ductal dilation. Assessment & Plan - Diagnosis (1) Elevated blood pressure reading Is this a current diagnosis for this admission?: Yes (2) Gastroenteritis Is this a current diagnosis for this admission?: Yes Plan: Symptoms started since 10/01/17. Continues to have persistent NV. Acute abdominal series and abdominal US negative for acute process. Most likely acute viral GE. Continue supportive management. - Continue IVF at 125cc/hour, if any signs of volume overload, will slow down rate. Additionally if patient begins to eat, will cut down rate - Urine cx negative - Has C. diff ordered but has not had diarrhea, not likely to be acute CDI --> ordered d/c-ed on 10/03 - Continue Zofran IV and IV Phenergan, gave 1* dose of IV Compazine, can tailor anti-emetics based on response - OK to continue PO percocet for pain control. Ideally would avoid as opioids can exacerbate NV. Will NOT give IV narcotics for this reason. Discussed with patient who was agreeable - Continue supportive care. (3) Nausea and vomiting Qualifiers: Vomiting type: bilious vomiting Qualified Code(s): R11.14 - Bilious vomiting Is this a current diagnosis for this admission?: Yes Plan: Persists, plan per above (4) Tobacco abuse Is this a current diagnosis for this admission?: Yes Plan: Has nicotene patch ordered. (5) Polysubstance abuse Is this a current diagnosis for this admission?: Yes Plan: Urine tox positive for opiates, cocaine, and marijuana - Should be addressed when patient improves clinically - Time Time Spent with patient: Less than 15 minutes Anticipated discharge: Home Within: within 48 hours - Plan Summary Plan Summary: Inpatient care required, discharge to home when medically stable
[2017-10-04] MEDS: ONDANSETRON HCL INJ/PF 4 MG/2 ML SDV IV PRN ×2 (01:44→07:52)
[2017-10-04] MEDS: 1/2 NORMAL SALINE 1,000 ML IV PRN ×2 (01:44→12:50)
[2017-10-04] MEDS: OXYCODONE-ACETAMINOPHEN 5-325 MG TABLET PO PRN ×2 (01:44→08:48)
--- NOTE | 2017-10-04 08:58 | Physician Advisory Note ---
Physician Advisor ProgressNote .: Pursuant to the plan for [facility], I have reviewed the medical record for this patient. Physician Advisor Statement: Nice documentation of persistent N/V, inability to tolerate po intake, mild distress. Appropriate to change to Inpatient status due to ongoing persistent sx with need for IVF, need for frequent prn IV antiemetics. Thanks! CK
[2017-10-04] MEDS: ENOXAPARIN SODIUM INJ 40 MG/0.4 ML DISP.SYRIN SUBCUT SCH (09:49)
[2017-10-04] MEDS: PANTOPRAZOLE SODIUM 40 MG VIAL IV SCH ×2 (09:50→21:15)
[2017-10-04] MEDS: LACTOBACILLUS ACIDOPHILUS 250 MG TAB PO SCH ×2 (09:50→18:51)
[2017-10-04] MEDS: PSYLLIUM SEED-SF 5.85 GM PACKET PO SCH ×2 (09:51→18:52)
[2017-10-04] MEDS ORDERED: METOCLOPRAMIDE HCL INJ/PF 10 MG/2 ML SDV IV ONE (10:30)
[2017-10-04] MEDS: PROMETHAZINE HCL INJ 25 MG/1 ML VIAL IV PRN (12:50)
--- NOTE | 2017-10-04 13:17 | PDOC PROGRESS REPORT ---
Subjective Progress Note for:: 10/04/17 Subjective:: Continues with nausea and vomiting. Also complains of chest wall pain. Inability to tolerate p.o. so far. Reason For Visit: GASTROENTERITIS, NAUSEA AND VOMITING, ELEVATED Physical Exam Vital Signs: Temp Pulse Resp BP Pulse Ox 98.6 F 51 L 12 151/76 H 100 10/04/17 08:00 10/04/17 08:00 10/04/17 08:00 10/04/17 08:00 10/04/17 08:00 Intake & Output 10/03/17 10/04/17 10/05/17 06:59 06:59 06:59 Intake Total 200 2154 Balance 200 2154 Weight 38.4 kg 37 kg General appearance: PRESENT: no acute distress Eye exam: PRESENT: conjunctiva pink. ABSENT: scleral icterus Mouth exam: PRESENT: moist, tongue midline Neck exam: ABSENT: JVD Respiratory exam: PRESENT: chest wall tenderness, clear to auscultation camilo. ABSENT: rales, rhonchi, wheezes Cardiovascular exam: PRESENT: RRR. ABSENT: diastolic murmur, rubs, systolic murmur GI/Abdominal exam: PRESENT: normal bowel sounds, soft, tenderness - Epigastric tenderness. ABSENT: distended, guarding, mass, organolmegaly, rebound Extremities exam: ABSENT: calf tenderness, clubbing, pedal edema Neurological exam: PRESENT: alert, awake, oriented to person, oriented to place , oriented to time, oriented to situation, CN II-XII grossly intact. ABSENT: motor sensory deficit Psychiatric exam: PRESENT: appropriate affect Skin exam: PRESENT: dry, intact, warm. ABSENT: cyanosis, rash Results Laboratory Results: 10/03/17 06:10 10/03/17 06:10 Impressions: Acute Abdomen Series 10/02/17 13:42 IMPRESSION: NO RADIOGRAPHIC EVIDENCE FOR ACUTE ABDOMINAL DISEASE. Abdomen Ultrasound 10/02/17 13:51 IMPRESSION: No acute findings. No cholelithiasis or biliary ductal dilation. Assessment & Plan - Diagnosis (1) Gastroenteritis Is this a current diagnosis for this admission?: Yes Plan: The patient is still having problems with nausea and vomiting. She reports that her diarrhea however has improved. She may have a component of gastroparesis and we will start her on Reglan. If she continues to have nausea in spite of Reglan we will ask GI to evaluate tomorrow. We will continue with IV fluids as she is still not taking adequate amounts in by mouth. (2) Elevated blood pressure reading Is this a current diagnosis for this admission?: Yes Plan: Blood pressures are still elevated. Will just continue to monitor for now (3) Nausea and vomiting Qualifiers: Vomiting type: bilious vomiting Qualified Code(s): R11.14 - Bilious vomiting Is this a current diagnosis for this admission?: Yes Plan: We will try the patient on Reglan. If she does not improve we will consult GI tomorrow. (4) Polysubstance abuse Is this a current diagnosis for this admission?: Yes Plan: She tested positive for opiates, cocaine and marijuana. (5) Tobacco abuse Is this a current diagnosis for this admission?: Yes Plan: She is encouraged to quit. - Time Time Spent with patient: 25-34 minutes - Inpatient Certification Medical Necessity: Need For IV Fluids - Plan Summary Plan Summary: We will change from an observation to an inpatient as she is still unable to tolerate p.o. and needs IV fluids.
[2017-10-04] MEDS: OXYCODONE HCL IR 5 MG TABLET PO PRN ×2 (15:11→21:19)
[2017-10-04] MEDS: METOCLOPRAMIDE HCL INJ/PF 10 MG/2 ML SDV IV SCH ×2 (15:12→21:15)
[2017-10-04] MEDS: NICOTINE 14 MG/24 HR PATCH.TD24 TD SCH (18:52)
[2017-10-05] MEDS: OXYCODONE HCL IR 5 MG TABLET PO PRN (03:24)
[2017-10-05] MEDS: METOCLOPRAMIDE HCL INJ/PF 10 MG/2 ML SDV IV SCH (03:24)
[2017-10-05 05:12] LABS: ABSOLUTE LYMPHOCYTES (AUTO) 2.5 10^3/uL (0.5-4.7); ABSOLUTE MONOCYTES (AUTO) 0.5 10^3/uL (0.1-1.4); ABSOLUTE NEUT (AUTO) 3.3 10^3/uL (1.7-8.2); BASOPHILS % (AUTO) 0.5 % (0-2); EOSINOPHILS % (AUTO) 0.6 % (0-6); HEMATOCRIT 38.3 % (36.0-47.0); HEMOGLOBIN 12.7 g/dL (12.0-15.5); MEAN CORPUSCULAR HEMOGLOBIN 28.6 pg (27.0-33.4); MEAN CORPUSCULAR HGB CONC 33.1 g/dL (32.0-36.0); MEAN CORPUSCULAR VOLUME 87 fl (80-97); MONOCYTES % (AUTO) 8.5 % (3-13); PLATELET COUNT 284 10^3/uL (150-450); RED BLOOD COUNT 4.42 10^6/uL (3.72-5.28); RED CELL DISTRIBUTION WIDTH 14.5 % (11.5-14.0); SEGMENTED NEUTROPHILS % (AUTO) 51.4 % (42-78); TOTAL CELLS COUNTED % (AUTO) 100 %; WHITE BLOOD COUNT 6.4 10^3/uL (4.0-10.5)
[2017-10-05 05:55] LABS: ANION GAP 8 (5-19); BLOOD UREA NITROGEN 6 mg/dL (7-20); CALCIUM 9.3 mg/dL (8.4-10.2); CARBON DIOXIDE 27 mmol/L (22-30); CHLORIDE 101 mmol/L (98-107); GLUCOSE 89 mg/dL (75-110); POTASSIUM 3.4 mmol/L (3.6-5.0); SODIUM 135.5 mmol/L (137-145)
[2017-10-05 08:22] VITALS: BP 134/79
--- NOTE | 2017-10-05 12:22 | PDOC DISCHARGE SUMMARY ---
General - Admit/Disc Date/PCP Admission Date/Primary Care Provider: 10/04/17 13:12 Discharge Date: 10/05/17 - Discharge Diagnosis (1) Gastroenteritis Is this a current diagnosis for this admission?: Yes Summary: Probable viral gastroenteritis. (2) Elevated blood pressure reading Is this a current diagnosis for this admission?: Yes Summary: Not started on any blood pressure medications at this time. (3) Nausea and vomiting Is this a current diagnosis for this admission?: Yes (4) Polysubstance abuse Is this a current diagnosis for this admission?: Yes (5) Tobacco abuse Is this a current diagnosis for this admission?: Yes - Additional Information Resuscitation Status: Full Code Discharge Diet: Regular Discharge Activity: Activity As Tolerated Prescriptions: Metoclopramide HCl [Reglan] 5 mg PO ACHS PRN #20 tablet PRN Reason: For Nausea/Vomiting Home Medications: Flu Vacc [id number] Up/Pf [Fluzone Adlt Quad [id number] Vac 0.5 ml Syr] 0.5 ml IM .DISCHARGE PRN disp.syrin 10/05/17 Metoclopramide HCl [Reglan] 5 mg PO ACHS PRN #20 tablet 10/05/17 Nicotine [Nicoderm 14 mg/24 Hr Transdermal Patch] 1 each TD QPM patch.[id number] History of Present Illness History of Present Illness: JENNIFER CARPENTER is a 37 year old female who presented to emergency room with a one-day history of nausea, vomiting and diarrhea. Patient had not had any fevers or chills. Patient was in the emergency room for 7 hours and given IV fluids but continued to have nausea vomiting. The patient has a history of substance abuse and had been using heroin 3 weeks prior but had already went through withdrawal according to her. Patient had been doing cocaine as well as marijuana. Patient is admitted for treatment of the presumed viral gastroenteritis. Hospital Course Hospital Course: 37-year-old female who presented with nausea, vomiting and diarrhea. The patient was felt to most likely have a viral gastritis the cause and was given IV fluids and antiemetics. The patient continued to have problems with the nausea and vomiting and also did develop some chest wall pain secondary to her retching. The patient was started on Reglan because of her continued symptoms and she had almost complete resolution of his symptoms. Patient was tolerating diet without difficulty and it was felt that she was stable for discharge. Patient also has a history of substance abuse and had been using cocaine marijuana and heroin prior to her admission. She was encouraged to avoid any illicit substances. Patient was noted to have elevated blood pressures during hospitalization but they have improved and she has not been started on any antihypertensives. Physical Exam Vital Signs: Temp Pulse Resp BP Pulse Ox 99 F 49 L 17 134/79 H 100 10/05/17 08:15 10/05/17 08:15 10/05/17 08:15 10/05/17 08:15 10/05/17 08:15 Intake & Output 10/04/17 10/05/17 10/06/17 06:59 06:59 06:59 Intake Total 785 Balance 785 Weight 35.6 kg General appearance: PRESENT: no acute distress Eye exam: PRESENT: conjunctiva pink. ABSENT: scleral icterus Mouth exam: PRESENT: moist, tongue midline Neck exam: ABSENT: JVD Respiratory exam: PRESENT: clear to auscultation camilo. ABSENT: rales, rhonchi, wheezes Cardiovascular exam: PRESENT: RRR. ABSENT: diastolic murmur, rubs, systolic murmur GI/Abdominal exam: PRESENT: normal bowel sounds, soft. ABSENT: distended, guarding, mass, organolmegaly, rebound, tenderness Extremities exam: ABSENT: calf tenderness, clubbing, pedal edema Neurological exam: PRESENT: alert, awake, oriented to person, oriented to place , oriented to time, oriented to situation, CN II-XII grossly intact. ABSENT: motor sensory deficit Psychiatric exam: PRESENT: appropriate affect Skin exam: PRESENT: dry, intact, warm. ABSENT: cyanosis, rash Results Laboratory Results: 10/05/17 04:11 10/05/17 04:11 10/05/17 10/05/17 04:11 04:11 WBC 6.4 RBC 4.42 Hgb 12.7 Hct 38.3 MCV 87 MCH 28.6 MCHC 33.1 RDW 14.5 H Plt Count 284 Seg Neutrophils % 51.4 Lymphocytes % 39.0 Monocytes % 8.5 Eosinophils % 0.6 Basophils % 0.5 Absolute Neutrophils 3.3 Absolute Lymphocytes 2.5 Absolute Monocytes 0.5 Absolute Eosinophils 0.0 Absolute Basophils 0.0 Sodium 135.5 L Potassium 3.4 L Chloride 101 Carbon Dioxide 27 Anion Gap 8 BUN 6 L Creatinine 0.76 Est GFR ( Amer) > 60 Est GFR (Non-Af Amer) > 60 Glucose 89 Calcium 9.3 Impressions: Acute Abdomen Series 10/02/17 13:42 IMPRESSION: NO RADIOGRAPHIC EVIDENCE FOR ACUTE ABDOMINAL DISEASE. Abdomen Ultrasound 10/02/17 13:51 IMPRESSION: No acute findings. No cholelithiasis or biliary ductal dilation. Qualifiers PATEINT BEING DISCHARGED WITH ANY OF THE FOLLOWING DIAGNOSIS?: No Plan Discharge Plan: Patient is discharged home. Follow-up with primary care in 1-2 weeks. Time Spent: Less than 30 Minutes
== END 2017-10-05 08:47 | disposition home or self-care (01) | DRG 392 ==
LOC: ER 07:10 → EH 16:43 → 4N 10-03 02:48 → OBSVTOIN 10-04 13:12
PROVIDERS: ADMIT Emergency Medicine; ATTEND Emergency Medicine
DX: A08.4 Viral intestinal infection, unspecified (principal); R11.2 Nausea with vomiting, unspecified; R03.0 Elevated blood-pressure reading, without diagnosis of hypertension; F19.10 Other psychoactive substance abuse, uncomplicated; K21.9 Gastro-esophageal reflux disease without esophagitis; F17.200 Nicotine dependence, unspecified, uncomplicated; Z88.0 Allergy status to penicillin; Z88.2 Allergy status to sulfonamides
CPT/HCPCS: 36415; 74022; 76705; 80048; 80053; 80307; 81001; 83690; 83735; 84703; 85025; 87086; 90686; G0378; J0780; J1200; J1650; J2270; J2405; J2550; J2765; J3480; J7030; S0028; S0119; S0164

== ENCOUNTER 2017-11-28 23:14 | Emergency (ER) | payer MEDICAID ==
[2017-11-29] MEDS ORDERED: NORMAL SALINE 1000 ML 1,000 ML IV ONE (01:13)
[2017-11-29] MEDS ORDERED: METOCLOPRAMIDE HCL INJ/PF 10 MG/2 ML SDV IV ONE (01:13)
[2017-11-29] MEDS ORDERED: DIPHENHYDRAMINE HCL 50 MG/ML VIAL IV ONE (01:13)
--- NOTE | 2017-11-29 01:16 | ER Document Report ---
ED GI/ - General Chief Complaint: Nausea/Vomiting/Diarrhea Stated Complaint: NAUSEA/VOMITING/DIARRHEA Time Seen by Provider: 11/29/17 01:03 Notes: Patient is a 37-year-old female comes emergency department for chief complaint of vomiting. She states she has been vomiting for 3 days and cannot stop. She states she vomited 12 times today. She states she saw flecks of blood in her vomit earlier today but none since. Loose bowel movements. Denies fever or chills. Reports some vaginal discharge, denies dysuria. Past medical history of tubal ligation, C-sections. She denies tobacco, alcohol, she states she smoked marijuana, denies recreational drugs otherwise, states she last smoked marijuana 2 days ago. TRAVEL OUTSIDE OF THE [place] IN LAST 30 DAYS: No - Related Data Allergies/Adverse Reactions: Penicillins Allergy (Intermediate, Verified 10/02/17 07:13) vomiting and hives Sulfa (Sulfonamide Antibiotics) Adverse Reaction (Verified 10/02/17 07:13) Past Medical History - General Information source: Patient - Social History Smoking Status: Current Every Day Smoker Smoking Education Provided: Yes - <3 min Drug Abuse: Marijuana Lives with: Alone Family History: Hypertension Pulmonary Medical History: Denies: Hx Tuberculosis Neurological Medical History: Reports: Hx Migraine, Hx Seizures - x1 with Renal/ Medical History: Denies: Hx Peritoneal Dialysis GI Medical History: Reports: Hx Gastritis, Hx Gastroesophageal Reflux Disease - egd dr villanueva 2 years ago, Hx Colonoscopy - dr villanueva - polyps Past Surgical History: Reports: Hx Section - x 2, Hx Tubal Ligation. Denies: Hx Pacemaker - Immunizations Hx Diphtheria, Pertussis, Tetanus Vaccination: Yes Review of Systems - Review of Systems Constitutional: No symptoms reported EENT: No symptoms reported Cardiovascular: No symptoms reported Respiratory: No symptoms reported Gastrointestinal: See HPI Genitourinary: See HPI Female Genitourinary: See HPI Musculoskeletal: No symptoms reported Skin: No symptoms reported Hematologic/Lymphatic: No symptoms reported Neurological/Psychological: No symptoms reported Physical Exam - Vital signs Vitals: Temp Pulse Resp BP Pulse Ox 98.6 F 62 20 137/78 H 100 11/28/17 23:32 11/28/17 23:32 11/28/17 23:32 11/28/17 23:32 11/28/17 23:32 - General General appearance: Other - Patient resting quietly, when she noticed I entered the room she began snorting, breathing rapidly, and moaning - HEENT Head: Normocephalic, Atraumatic Eyes: Normal Conjunctiva: Normal Extraocular movements intact: Yes Eyelashes: Normal Pupils: PERRL Sinus: Normal Nasal: Normal Mouth/Lips: Normal Mucous membranes: Normal Pharynx: Normal Neck: Normal - Respiratory Respiratory status: No respiratory distress Breath sounds: Normal. No: Decreased air movement, Wheezing - Cardiovascular Rhythm: Regular. No: Tachycardia Heart sounds: Normal auscultation, S1 appreciated, S2 appreciated Murmur: No Normal capillary refill: Yes - Abdominal Distension: No distension Tenderness: Tender - Patient complains regardless of where I palpate on the abdomen, however abdomen is still soft, no wincing or guarding noted, no rebound tenderness - Back Back: Normal, Nontender. No: Tender - Extremities General upper extremity: Normal inspection, Nontender, Normal strength, Normal temperature General lower extremity: Normal inspection, Nontender, Normal strength, Normal temperature. 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 Patient attempted to vomit when I was in the room but she was unsuccessful. Abdominal exam is unremarkable, vital signs are normal. Initially patient agreed with full workup, however after blood was drawn she is refusing to give urine, she refuses a pelvic exam. She states that she will have these has performed only if she is given pain medication. I explained that she will not be given narcotic pain medication for her nausea and vomiting, however she will be treated with medications to help her and fluids in addition to having the tests that she will agree to them. She refuses. Pelvic examination and urinalysis were not obtained as a result. HCG is negative, CBC, chemistry unremarkable and does not suggest that patient has been vomiting nonstop for the past 3 days like she describes. Patient still complaining of nausea and vomiting after Reglan and Benadryl, she was given IV fluids, Haldol, afterwards she states that her nausea actually did resolve. Patient was given p.o. fluids, Pepcid, Carafate, she tolerated these without difficulty. Patient discharged with follow-up instructions and return precautions. - Vital Signs Vital signs: Temp Pulse Resp BP Pulse Ox 98.6 F 80 20 121/74 98 11/28/17 23:32 11/29/17 06:41 11/29/17 06:41 11/29/17 06:41 11/29/17 06:41 - Laboratory Result Diagrams: 11/29/17 02:00 11/29/17 02:00 Laboratory results interpreted by me: 11/29/17 11/29/17 02:00 02:00 RDW 14.1 H Seg Neutrophils % 82.2 H Monocytes % 2.4 L Glucose 116 H Direct Bilirubin 0.5 H Discharge - Discharge Clinical Impression: Nausea and vomiting Qualifiers: Vomiting type: unspecified Vomiting Intractability: non-intractable Qualified Code(s): R11.2 - Nausea with vomiting, unspecified Condition: Stable Disposition: HOME, SELF-CARE Additional Instructions: You have declined part of your workup, remaining workup shows no abnormalities, test is negative. Take Reglan as prescribed if needed for nausea, you can take 25-50 mg of Benadryl to help with this, also take the Pepcid. Start with clear fluids, progress to bland food, slowly progress to normal. Follow-up with primary care. Return for any concerning worsening symptoms including uncontrolled vomiting, fever, black stools, or any other concerning or worsening symptoms. Prescriptions: Famotidine [Pepcid 20 mg Tablet] 20 mg PO BID #20 tablet Metoclopramide HCl [Reglan] 5 mg PO ASDIR PRN #30 tablet PRN Reason: Forms: Return to Work Referrals: GENE TRIPLETT MD [Primary Care Provider] - Follow up in 3-5 days
[2017-11-29] MEDS ORDERED: HALOPERIDOL LACTATE INJ 5 MG/1 ML VIAL IM ONE (02:07)
[2017-11-29 02:11] LABS: ABSOLUTE EOSINOPHILS # (AUTO) 0.1 10^3/uL (0.0-0.6); ABSOLUTE MONOCYTES (AUTO) 0.2 10^3/uL (0.1-1.4); ABSOLUTE NEUT (AUTO) 6.1 10^3/uL (1.7-8.2); BASOPHILS % (AUTO) 0.7 % (0-2); EOSINOPHILS % (AUTO) 0.8 % (0-6); HEMATOCRIT 43.2 % (36.0-47.0); HEMOGLOBIN 14.3 g/dL (12.0-15.5); LYMPHOCYTES % (AUTO) 13.9 % (13-45); MEAN CORPUSCULAR HEMOGLOBIN 28.6 pg (27.0-33.4); MEAN CORPUSCULAR HGB CONC 33.1 g/dL (32.0-36.0); MEAN CORPUSCULAR VOLUME 87 fl (80-97); MONOCYTES % (AUTO) 2.4 % (3-13); PLATELET COUNT 293 10^3/uL (150-450); RED BLOOD COUNT 4.99 10^6/uL (3.72-5.28); RED CELL DISTRIBUTION WIDTH 14.1 % (11.5-14.0); SEGMENTED NEUTROPHILS % (AUTO) 82.2 % (42-78); TOTAL CELLS COUNTED % (AUTO) 100 %; WHITE BLOOD COUNT 7.4 10^3/uL (4.0-10.5)
[2017-11-29 02:22] LABS: ALANINE AMINOTRANSFERASE 43 U/L (9-52); ALBUMIN 4.6 g/dL (3.5-5.0); ALKALINE PHOSPHATASE 68 U/L (38-126); ANION GAP 12 (5-19); ASPARTATE AMINO TRANSFERASE 30 U/L (14-36); BILIRUBIN,DIRECT 0.5 mg/dL (0.0-0.4); BILIRUBIN,TOTAL 0.8 mg/dL (0.2-1.3); BLOOD UREA NITROGEN 15 mg/dL (7-20); CALCIUM 9.6 mg/dL (8.4-10.2); CARBON DIOXIDE 27 mmol/L (22-30); CHLORIDE 104 mmol/L (98-107); GLUCOSE 116 mg/dL (75-110); LIPASE 35.4 U/L (23-300); POTASSIUM 3.7 mmol/L (3.6-5.0); SODIUM 143.1 mmol/L (137-145); TOTAL PROTEIN 8.2 g/dL (6.3-8.2)
[2017-11-29] MEDS ORDERED: FAMOTIDINE 20 MG TABLET PO ONE (05:00)
[2017-11-29] MEDS ORDERED: SUCRALFATE 1 GM TABLET PO ONE (05:00)
[2017-11-29 06:42] VITALS: BP 121/74
== END 2017-11-29 06:00 | disposition home or self-care (01) ==
LOC: ER 23:14
DX: R11.2 Nausea with vomiting, unspecified (principal); R19.7 Diarrhea, unspecified; F17.200 Nicotine dependence, unspecified, uncomplicated
CPT/HCPCS: 99284; 96372; 96361; 96374; 96375; 36415; 83690; 84703; 85025; 80053; J1200; J1630; J2765; J7030

== ENCOUNTER 2018-12-31 16:38 | Emergency (ER) | payer MEDICAID ==
--- NOTE | 2018-12-31 16:59 | ER Document Report ---
ED General - General Stated Complaint: POSSIBLE OVERDOSE Time Seen by Provider: 12/31/18 16:52 Primary Care Provider: GENE TRIPLETT MD [Primary Care Provider] - Follow up as needed Notes: 38-year-old female with past medical history of heroin abuse according to EMS who was found by family in the bathroom when they heard a "side". Patient supposedly had a tourniquet on her arm as well as a spoon in the bathroom. Patient was supposedly initially unresponsive when the police arrived they provided 4 mg of Narcan which arouse the patient. Patient was supposedly extremely combative and EMS provided Ativan as well as 200 mg of intramuscular ketamine. They stated that they saw no focal neurological deficits. They stated that the patient was very confused and combative which is why they initiated the medications. TRAVEL OUTSIDE OF THE [place] IN LAST 30 DAYS: No - Related Data Allergies/Adverse Reactions: Penicillins Allergy (Intermediate, Verified 10/02/17 07:13) vomiting and hives Sulfa (Sulfonamide Antibiotics) Adverse Reaction (Verified 10/02/17 07:13) Past Medical History - Social History Smoking Status: Unknown if Ever Smoked Family History: Reviewed & Not Pertinent, Hypertension Pulmonary Medical History: Denies: Hx Tuberculosis Neurological Medical History: Reports: Hx Migraine, Hx Seizures - x1 with Renal/ Medical History: Denies: Hx Peritoneal Dialysis GI Medical History: Reports: Hx Gastritis, Hx Gastroesophageal Reflux Disease - egd dr villanueva 2 years ago, Hx Colonoscopy - dr villanueva - polyps Past Surgical History: Reports: Hx Section - x 2, Hx Tubal Ligation. Denies: Hx Pacemaker - Immunizations Hx Diphtheria, Pertussis, Tetanus Vaccination: Yes Review of Systems - Review of Systems -: Yes ROS unobtainable due to patient's medical condition Physical Exam - Vital signs Notes: Reviewed vital signs and nursing note as charted by RN. CONSTITUTIONAL: Patient is obtunded but responds to painful stimuli HEAD: Normocephalic; atraumatic EYES: PERRL/not pinpoint; sclerae non-icteric ENT: Normal nose; no rhinorrhea; moist mucous membranes; pharynx without lesions noted NECK: Supple without meningismus; non-tender; no cervical lymphadenopathy, no masses CARD: Regular rate and rhythm; no murmurs; symmetric distal pulses RESP: Normal chest excursion without splinting or tachypnea; breath sounds clear and equal bilaterally ABD/GI: Normal bowel sounds; non-distended; soft, non-tender EXT: Normal ROM in all joints; non-tender to palpation; no edema SKIN: No acute lesions noted NEURO: Patient is moving all 4 extremities. She is intermittently having a jerking like motion but in response to pain by pulling away. Course - Re-evaluation Re-evalutation: 12/31/18 17:05 Given the history and physical examination we will place the patient on the monitor, obtain IV access, elevate the bed 30 degrees to help prevent aspiration, obtain a CT scan of the head and reassess. Given the previous history as explained, I do believe this is most likely a heroin overdose with possibly a mixed ingestion. I believe that the patient is maintaining her airway at this moment. 12/31/18 17:43 EKG shows a heart rate of 95, normal sinus rhythm, normal axis incomplete left bundle branch block with LVH present. Old EKG shows no appreciable change. - Laboratory Result Diagrams: 12/31/18 17:06 12/31/18 17:06 Laboratory results interpreted by me: 12/31/18 12/31/18 12/31/18 17:06 17:06 17:11 Hgb 11.3 L Hct 33.9 L RDW 14.5 H Ur Leukocyte Esterase MODERATE H Salicylates < 1.0 L Acetaminophen < 10 L Critical Care Note - Critical Care Note Total time excluding time spent on procedures (mins): 35 Discharge - Discharge Referrals: GENE TRIPLETT MD [Primary Care Provider] - Follow up as needed
[2018-12-31] MEDS ORDERED: LORAZEPAM INJ 2 MG/1 ML VIAL ONE (17:06)
[2018-12-31] MEDS ORDERED: LORAZEPAM INJ 2 MG/1 ML VIAL IV ONE (17:07)
[2018-12-31 17:13] LABS: ABSOLUTE EOSINOPHILS # (AUTO) 0.1 10^3/uL (0.0-0.6); ABSOLUTE MONOCYTES (AUTO) 0.2 10^3/uL (0.1-1.4); ABSOLUTE NEUT (AUTO) 2.7 10^3/uL (1.7-8.2); BASOPHILS % (AUTO) 0.5 % (0-2); EOSINOPHILS % (AUTO) 1.4 % (0-6); HEMATOCRIT 33.9 % (36.0-47.0); HEMOGLOBIN 11.3 g/dL (12.0-15.5); LYMPHOCYTES % (AUTO) 40.7 % (13-45); MEAN CORPUSCULAR HEMOGLOBIN 28.4 pg (27.0-33.4); MEAN CORPUSCULAR HGB CONC 33.3 g/dL (32.0-36.0); MEAN CORPUSCULAR VOLUME 85 fl (80-97); MONOCYTES % (AUTO) 3.7 % (3-13); PLATELET COUNT 307 10^3/uL (150-450); RED BLOOD COUNT 3.97 10^6/uL (3.72-5.28); RED CELL DISTRIBUTION WIDTH 14.5 % (11.5-14.0); SEGMENTED NEUTROPHILS % (AUTO) 53.7 % (42-78); TOTAL CELLS COUNTED % (AUTO) 100 %
[2018-12-31 17:30] LABS: ACETAMINOPHEN < 10 ug/mL (10-30); ALANINE AMINOTRANSFERASE 24 U/L (9-52); ALCOHOL < 10 mg/dL (NONE DETECTED); ALKALINE PHOSPHATASE 62 U/L (38-126); ANION GAP 10 (5-19); ASPARTATE AMINO TRANSFERASE 19 U/L (14-36); BILIRUBIN,DIRECT 0.2 mg/dL (0.0-0.4); BILIRUBIN,TOTAL 0.3 mg/dL (0.2-1.3); BLOOD UREA NITROGEN 13 mg/dL (7-20); CALCIUM 9.5 mg/dL (8.4-10.2); CARBON DIOXIDE 25 mmol/L (22-30); CHLORIDE 105 mmol/L (98-107); GLUCOSE 90 mg/dL (75-110); POTASSIUM 4.2 mmol/L (3.6-5.0); SALICYLATE < 1.0 mg/dL (2.0-20.0); SODIUM 140.3 mmol/L (137-145); TOTAL PROTEIN 7.3 g/dL (6.3-8.2)
[2018-12-31 17:32] LABS: APPEARANCE,URINE SLIGHTLY-CLOUDY; BILIRUBIN,URINE NEGATIVE (NEGATIVE); COLOR,URINE YELLOW; GLUCOSE, URINE NEGATIVE (NEGATIVE); KETONES,URINE NEGATIVE (NEGATIVE); LEUKOCYTE ESTERASE,URINE MODERATE (NEGATIVE); NITRITE,URINE NEGATIVE (NEGATIVE); PROTEIN,URINE NEGATIVE (NEGATIVE); URINE SPECIFIC GRAVITY 1.023; UROBILINOGEN,URINE NEGATIVE mg/dL (<2.0)
--- NOTE | 2018-12-31 17:38 | RADIOLOGY REPORT (SQ) ---
EXAM DESCRIPTION: CT HEAD WITHOUT COMPLETED DATE/TIME: 12/31/2018 5:29 pm REASON FOR STUDY: 4; ams COMPARISON: 2010 TECHNIQUE: Axial images acquired through the brain without intravenous contrast. Images reviewed wi th bone, brain and subdural windows. Additional sagittal and coronal reconstructions were generated. Images stored on PACS. All CT scanners at this facility use dose modulation, iterative reconstruction, and/or weight based d osing when appropriate to reduce radiation dose to as low as reasonably achievable (ALARA). [facility]: Dose Right [facility]: CareDose [facility]: Dose Right [facility]: Teradose 4D [facility]: [employer] RADIATION DOSE: CT Rad equipment meets quality standard of care and radiation dose reduction techniq ues were employed. CTDIvol: 55.2 mGy. DLP: 1056 mGy-cm. mGy. LIMITATIONS: None. FINDINGS: VENTRICLES: Normal size and contour. CEREBRUM: No masses. No hemorrhage. No midline shift. No evidence for acute infarction. Normal gra y/white matter differentiation. No areas of low density in the white matter. CEREBELLUM: No masses. No hemorrhage. No alteration of density. No evidence for acute infarction. EXTRAAXIAL SPACES: No fluid collections. No masses. ORBITS AND GLOBE: No intra- or extraconal masses. Normal contour of globe without masses. CALVARIUM: No fracture. PARANASAL SINUSES: No fluid or mucosal thickening. SOFT TISSUES: No mass or hematoma. OTHER: No other significant finding. IMPRESSION: NORMAL BRAIN CT WITHOUT CONTRAST. EVIDENCE OF ACUTE STROKE: NO. COMMENT: Quality ID # [id number]: Final reports with documentation of one or more dose reduction techniques (e.g., Automated exposure control, adjustment of the mA and/or kV according to patient size, use of iterative reconstruction technique) TECHNICAL DOCUMENTATION: JOB ID: [id number] [employer]- All Rights Reserved Reading location - IP/workstation name: [email or web address]
[2018-12-31 17:53] LABS: URINE AMPHETAMINES SCREEN NEGATIVE; URINE BARBITURATES SCREEN NEGATIVE; URINE BENZODIAZEPINES SCREEN NEGATIVE; URINE COCAINE SCREEN UNCONFIRMED POSITIVE; URINE MARIJUANA (THC) SCREEN UNCONFIRMED POSITIVE; URINE METHADONE SCREEN NEGATIVE; URINE PHENCYCLIDINE SCREEN NEGATIVE
[2018-12-31 21:25] VITALS: BP 111/63
--- NOTE | 2018-12-31 22:11 | ER Document Report ---
ED General - General Chief Complaint: Possible Overdose Stated Complaint: POSSIBLE OVERDOSE Time Seen by Provider: 12/31/18 16:52 Primary Care Provider: GENE TRIPLETT MD [Primary Care Provider] - Follow up as needed TRAVEL OUTSIDE OF THE [place] IN LAST 30 DAYS: No - HPI Notes: Patient is a 38-year-old female who presents to the emergency department for evaluation. She is a known drug user. Evidently she was in the bathroom, family heard a loud "thump." He found her unresponsive. She had a tourniquet around her arm and a needle beside her, as well as a spoon. When EMS arrived she was administered 4 mg of Narcan and became extremely combative. She was further given 200 mg of IM ketamine and brought to the emergency department for evaluation. - Related Data Allergies/Adverse Reactions: Penicillins Allergy (Intermediate, Verified 10/02/17 07:13) vomiting and hives Sulfa (Sulfonamide Antibiotics) Adverse Reaction (Verified 10/02/17 07:13) Past Medical History - General Information source: Emergency Med Personnel - Social History Smoking Status: Current Every Day Smoker Frequency of alcohol use: Occasional Drug Abuse: Cocaine, Heroin, Marijuana Family History: Reviewed & Not Pertinent, Hypertension Patient has suicidal ideation: No Patient has homicidal ideation: No Pulmonary Medical History: Denies: Hx Tuberculosis Neurological Medical History: Reports: Hx Migraine, Hx Seizures - x1 with Renal/ Medical History: Denies: Hx Peritoneal Dialysis GI Medical History: Reports: Hx Gastritis, Hx Gastroesophageal Reflux Disease - egd dr villanueva 2 years ago, Hx Colonoscopy - dr villanueva - polyps Past Surgical History: Reports: Hx Section - x 2, Hx Tubal Ligation. Denies: Hx Pacemaker - Immunizations Hx Diphtheria, Pertussis, Tetanus Vaccination: Yes Review of Systems - Review of Systems -: Yes ROS unobtainable due to patient's medical condition Physical Exam - Vital signs Vitals: Temp Pulse Resp BP Pulse Ox 99.1 F 98 22 H 126/56 H 100 12/31/18 16:40 12/31/18 16:40 12/31/18 16:40 12/31/18 16:40 12/31/18 16:40 - Notes Notes: Vital signs reviewed, please refer to chart. Patient is normocephalic, atraumatic. Pupils 6 mm, sluggish, equal. Neck is supple without meningismus. Heart is regular rate and rhythm. Lungs are clear to auscultation bilaterally. Abdomen is soft, nontender, normoactive bowel sounds throughout. Extremities without cyanosis, clubbing, edema. Peripheral pulses are equal. Skin is warm and dry. Patient is drowsy, opens her eyes to painful stimuli, but moves all 4 extremities spontaneously. She is able to follow directions. Course - Re-evaluation Re-evalutation: 12/31/18 22:16 Patient presented to the emergency department for evaluation after overdose. Family was here, interviewed. She does have a known history of heroin abuse. She was still agitated despite ketamine. She was further given Ativan 2 mg IM so she could undergo head CT, given the potential for head trauma with her overdose. Amatory vesication's were remarkable only for multiple illicit drugs in her urine. The patient remained stable throughout the course of her stay here. She aroused to verbal stimuli and was able to follow directions. Patient's mother was at the bedside. She decided that she did feel comfortable taking the patient home. She would be keeping worse overnight. They are to return to the emergency department for worsening or new concerning symptoms of any sort. 12/31/18 22:17 - Vital Signs Vital signs: Temp Pulse Resp BP Pulse Ox 99.1 F 98 18 111/63 100 12/31/18 16:40 12/31/18 16:40 12/31/18 21:00 12/31/18 21:00 12/31/18 21:00 - Laboratory Result Diagrams: 12/31/18 17:06 12/31/18 17:06 Laboratory results interpreted by me: 12/31/18 12/31/18 12/31/18 17:06 17:06 17:11 Hgb 11.3 L Hct 33.9 L RDW 14.5 H Ur Leukocyte Esterase MODERATE H Salicylates < 1.0 L Acetaminophen < 10 L - Diagnostic Test Radiology reviewed: Reports reviewed - Head CT Discharge - Discharge Clinical Impression: Polysubstance abuse Heroin overdose Qualifiers: Injury intent: accidental or unintentional Condition: Stable Disposition: HOME, SELF-CARE Instructions: Instructions for Home Care Following a Drug Overdose ([facility]), Overdose ([facility]) Additional Instructions: Follow-up with primary care this week, return to the emergency department with worsening or new concerning symptoms. Referrals: GENE TRIPLETT MD [Primary Care Provider] - Follow up as needed
--- NOTE | 2018-12-31 23:38 | EKG REPORT ---
SEVERITY:- ABNORMAL ECG - SINUS RHYTHM BRANDON, CONSIDER BIATRIAL ABNORMALITIES CONSIDER RIGHT VENTRICULAR HYPERTROPHY : Confirmed by: Comfort Cooley 31-Dec-2018 23:37:16
== END 2018-12-31 22:00 | disposition home or self-care (01) ==
LOC: ER 16:38
DX: T50.991A Poisoning by other drugs, medicaments and biological substances, accidental (unintentional), initial encounter (principal); F14.10 Cocaine abuse, uncomplicated; F12.10 Cannabis abuse, uncomplicated; F11.10 Opioid abuse, uncomplicated; F17.200 Nicotine dependence, unspecified, uncomplicated
CPT/HCPCS: 93005; 99285; 51701; 96374; 36415; 80307 ×4; 85025; 81025; 80053; 81001; 70450; 93010; J2060

== ENCOUNTER 2019-01-25 08:40 | Emergency (ER) | payer MEDICAID ==
[2019-01-25] MEDS ORDERED: LIDOCAINE 1% INJ-PF (10 MG/ML) 30 ML SDV INJ ONE (09:39)
--- NOTE | 2019-01-25 09:42 | ER Document Report ---
ED Skin Rash/Insect Bite/Abscs - General Chief Complaint: Abscess Stated Complaint: ABSCESS Time Seen by Provider: 01/25/19 09:37 Primary Care Provider: GENE TRIPLETT MD [ACTIVE STAFF] - Follow up as needed Notes: Patient has an abscess swelling on her proximal inner right forearm for the past week. Says that she used to inject street drugs and did so in that location about 3 weeks ago. She is here today because the abscess "bust open" yesterday. Patient says that there was a large amount of pus that came out of the wound. She then followed that event by squeezing the area around the abscess very firm ly and often yesterday. It is painful and swollen around the abscess site just distal to the elbow joint. TRAVEL OUTSIDE OF THE [place] IN LAST 30 DAYS: No - Related Data Allergies/Adverse Reactions: Penicillins Allergy (Intermediate, Verified 10/02/17 07:13) vomiting and hives acetaminophen [From Tylenol] Allergy (Verified 01/25/19 08:42) Sulfa (Sulfonamide Antibiotics) Adverse Reaction (Verified 10/02/17 07:13) Past Medical History - Social History Smoking Status: Unknown if Ever Smoked Family History: Reviewed & Not Pertinent, Hypertension Neurological Medical History: Reports: Hx Migraine, Hx Seizures - x1 with GI Medical History: Reports: Hx Gastritis, Hx Gastroesophageal Reflux Disease - egd dr villanueva 2 years ago, Hx Colonoscopy - dr villanueva - polyps Past Surgical History: Reports: Hx Section - x 2, Hx Tubal Ligation. Denies: Hx Pacemaker - Immunizations Hx Diphtheria, Pertussis, Tetanus Vaccination: Yes Review of Systems - Review of Systems Notes: CONSTITUTIONAL : Denies fever. CARDIOVASCULAR: Denies chest pain. RESPIRATORY: Denies cough, chest congestion, or shortness of breath. GASTROINTESTINAL: Denies abdominal pain or nausea, vomiting, or diarrhea. GENITOURINARY: Denies difficulty or painful urinating, urinary frequency, blood in urine. Physical Exam - Vital signs Vitals: Temp Pulse Resp BP Pulse Ox 98.3 F 82 16 103/89 H 99 01/25/19 08:55 01/25/19 08:55 01/25/19 08:55 01/25/19 08:55 01/25/19 08:55 Notes: PHYSICAL EXAMINATION: GENERAL: Well-appearing, no acute distress. HEAD: Atraumatic, normocephalic. NECK: Normal range of motion, supple. LUNGS: Breath sounds clear and equal bilaterally. HEART: Regular rate and rhythm without murmurs heard. ABDOMEN: Soft, nontender. No guarding or rebound or masses felt. Extremities: Patient has a very large swollen area of the proximal inner right forearm. Centrally located is a couple of pustules which are oozing liquid. Palpation of the wound reveals only a small amount of fluctuance right next of those pustules. There is some soft tissue swelling that extends up above the elbow. Distally, patient's mid forearm down to and including the fingers are normal. Good capillary refill. No evidence of compartment syndrome symptoms. Course - Re-evaluation Re-evalutation: 01/25/19 20:05 Patient was given a gram of Rocephin IV. She will be discharged with a prescription for Keflex. I did culture the wound. I know that this could be MRSA for which Keflex will not be effective, but my experience has been that most infected needlesticks turned out to be a skin lynne such as staph, not methicillin resistant. I will check on the patient's cultures in the next day or so and see if she needs to have antibiotic changed. She may not need an antibiotic at all since the wound is cleaned and draining well. - Vital Signs Vital signs: Temp Pulse Resp BP Pulse Ox 97.8 F 66 16 99/54 L 100 01/25/19 13:21 01/25/19 13:21 01/25/19 13:21 01/25/19 13:21 01/25/19 13:21 - Laboratory Result Diagrams: 01/25/19 10:30 01/25/19 10:30 Laboratory results interpreted by me: 01/25/19 01/25/19 10:30 10:30 RDW 14.4 H Monocytes % (Manual) 2 L BUN 5 L Procedures - Incision and Drainage Right Proximal ForeArm Anesthetic type: 1% Lidocaine mL's of anesthetic: 5 Blade size: 11 I&D procedure: Chlorprep applied, Iodoform packing placed Incision Method: Incision made by scalpel Amount/type of drainage: Small amount of fluid, less than 5 mL. Notes: 01/25/19 20:08 The area was prepped and cleaned. 1% xylose injection to anesthetize the adjacent tissue. A small incision about 1 cm in length was made with the scalpel. I did not find very much pus in the wound. I think it must of drained yesterday, as the patient indicated. I did explore with blunt dissection with a hemostat. There were several small superficial pockets that I opened clearly. I flushed the wound with saline and then iodoform gauze was placed in the wound. I told the patient to leave the packing in for 1 day. To get in the shower tomorrow and get the area wet and pull the packing out and throw it away. She has been advised to get in the shower and wash that area off at least twice a day. After washing it she should hold the arm under some warm water running for about 5 minutes. Patient was advised to return if she starts running a high fever, the swelling gets worse over the wound starts draining pus. Discharge - Discharge Clinical Impression: Abscess of right arm, Cellulitis of arm, right Condition: Stable Disposition: HOME, SELF-CARE Additional Instructions: ABSCESS: You have an abscess (boil). This a pus-forming infection, usually due to staph. Some boils may be left to drain on their own, but most require lancing. From the time the tender lump first appears, it may be three or four days before the abscess is ready to linnea. Local heat and rest help at this stage of treatment. An antibiotic may prevent spread of the infection. Once the abscess is opened, packing may be placed into it. This is done so pus is not sealed inside by premature closure of the cavity. The packing will be removed at your follow-up visit or you may be advised to remove it yourself at home. Sometimes this packing must be replaced a few times during healing. The wound will heal with surprisingly little scar. Depending on the size and location of an abscess, healing can take one to four weeks. You may shower and wash the area around the incision site two or three times a day. Antibiotics may be prescribed, but are usually not necessary after an abscess has been drained. If you develop fever, chills, worsening pain, or increasing swelling in the area, call the doctor or return immediately. POST INCISION AND DRAINAGE: You have had an incision made to allow drainage of an abscess. The incision must remain open so that pus and debris can drain from the wound. If the abscess cavity is large, packing is placed. This keeps the tissues from collapsing and trapping pus inside, while the body shrinks the cavity. The packing may need to be replaced every day or two. The physician will instruct you on the packing. Keep a bulky dressing over the area. Replace it if it becomes saturated with blood or pus. Do not disturb the packing (if present). You may shower and cleanse the area with gentle soap and warm water two or three times a day. Local warmth may be soothing, and may promote faster healing. Return if you develop high fever or chills, or if you note spreading redness, increasing swelling, or increasing tenderness. MRSA CELLULITIS: You have an infection of your skin and underlying soft tissues called cellulitis. This is due to bacteria, which can enter through any break in the skin, or even through an irritated hair follicle. Untreated, cellulitis will usually worsen and may form an abscess which requires draining. Although many bacterial organisms can cause cellulitis and abscess formations, the most likely bacteria is Methicillin-Resistant Staph Aureus, or MRSA for short. Antibiotics are required. Usually, warm packs or warm soaks, and elevation of the infected area are recommended. You should start getting better within 24 to 36 hours. Most infections respond quickly to the right medication. Follow-up care is important, however, to check for abscess (boil) formation, unsuspected foreign body, or resistant infection. If you develop fever, chills, or if the area of infection is becoming rapidly more swollen or painful, call the doctor at once. ORAL NARCOTIC MEDICATION: You have been given a prescription for pain control. This medication is a narcotic. It's best taken with food, as nausea can result if taken on an empty stomach. Don't operate machinery or drive within six hours of taking this medication. Do not combine this medicine with alcohol, or with any medication which can cause sedation (such as cold tablets or sleeping pills) unless you get permission from the physician. Narcotics tend to cause constipation. If possible, drink plenty of fluids and eat a diet high in fiber and fruits. Rocephin You have been given an injection of an antibiotic called Rocephin (ceftriaxone). Sometimes the injection must be combined with antibiotic pills. For some infections, such as an uncomplicated ear infection, Rocephin provides all the antibiotic that's needed. The antibiotic will be in your body for about two days. For serious infections, we usually repeat doses of Rocephin daily. Side effects are very unusual following a shot. Women may develop vaginal yeast infections, and babies can get yeast (thrush) in the mouth following the use of antibiotics. Contact your physician if you have symptoms with this medication. Allergy to this antibiotic can result in hives, wheezing, faintness, or itching. If symptoms of allergy occur, call the doctor at once. CEPHALEXIN: The antibiotic you've been prescribed is a member of the cephalosporin class. This type of antibiotic covers a wide variety of infections, including those of the skin, lungs, and urinary tract. It's useful for staph infections. This antibiotic is slightly similar to the penicillin family. In rare cases, a person who is allergic to penicillin will also be allergic to this medication. If you have had a severe allergic reaction to penicillin, and have not taken this antibiotic since that time, notify your doctor. Antibiotics which cover many germs ("broad spectrum" antibiotics) are more likely to cause diarrhea or "yeast" infections. Women prone to vaginal yeast problems may suffer an attack after taking this antibiotic. In infants, oral thrush (white spots "stuck" on the cheek) or yeast diaper rash may result. See your doctor if these problems occur. Call at once if you develop itching, hives, shortness of breath, or lightheadedness. Return for us to reevaluate if your arm looks worse tomorrow or the next day. Remove the drain tomorrow morning in the shower. Shower and let the water fall on the right arm for about 5 minutes or so at least twice a day. FOLLOW-UP CARE: Most simple abscesses will not require a follow up visit. If you had packing placed in the abscess, remove it as instructed by the physician. If you have been referred to a physician for follow-up care, call the physicians office for an appointment as you were instructed or within the next two days. If you experience worsening or a significant change in your symptoms, return to the Emergency Department at any time for re-evaluation. Prescriptions: Cephalexin Monohydrate [Keflex 500 mg Capsule] 500 mg PO QID 7 Days #28 capsule Oxycodone HCl/Acetaminophen [Percocet 5-325 mg Tablet] 1 tab PO Q4H PRN #10 tablet PRN Reason: Referrals: GENE TRIPLETT MD [ACTIVE STAFF] - Follow up as needed
[2019-01-25] MEDS ORDERED: PROMETHAZINE HCL 25 MG TABLET PO ONE (10:44)
[2019-01-25 10:49] LABS: HEMATOCRIT 36.6 % (36.0-47.0); HEMOGLOBIN 12.1 g/dL (12.0-15.5); MEAN CORPUSCULAR HEMOGLOBIN 27.7 pg (27.0-33.4); MEAN CORPUSCULAR HGB CONC 33.1 g/dL (32.0-36.0); MEAN CORPUSCULAR VOLUME 84 fl (80-97); PLATELET COUNT 295 10^3/uL (150-450); RED BLOOD COUNT 4.37 10^6/uL (3.72-5.28); RED CELL DISTRIBUTION WIDTH 14.4 % (11.5-14.0); WHITE BLOOD COUNT 6.8 10^3/uL (4.0-10.5)
[2019-01-25] MEDS ORDERED: OXYCODONE-ACETAMINOPHEN 5-325 MG TABLET PO ONE (10:50)
[2019-01-25 11:07] LABS: ABSOLUTE LYMPHOCYTES# (MANUAL) 1.6 10^3/uL (0.5-4.7); ABSOLUTE MONOCYTES # (MANUAL) 0.1 10^3/uL (0.1-1.4); ABSOLUTE NEUTROPHILS# (MANUAL) 4.8 10^3/uL (1.7-8.2); BASOPHILS % (MANUAL) 1 % (0-2); EOSINOPHILS % (MANUAL) 2 % (0-6); LYMPHOCYTES % (MANUAL) 22 % (13-45); MONOCYTES % (MANUAL) 2 % (3-13); SEGMENTED NEUTROPHILS % (MAN) 71 % (42-78); TOTAL CELLS COUNTED 100
[2019-01-25 11:08] LABS: TOXIC VACUOLATION PRESENT
[2019-01-25 11:09] LABS: ANISOCYTOSIS SLIGHT; OVALOCYTES SLIGHT; PLATELET COMMENT ADEQUATE; POIKILOCYTOSIS SLIGHT; SCHISTOCYTES SLIGHT; TEAR DROP CELLS SLIGHT
[2019-01-25 11:13] LABS: ALANINE AMINOTRANSFERASE 29 U/L (9-52); ALBUMIN 3.7 g/dL (3.5-5.0); ALKALINE PHOSPHATASE 57 U/L (38-126); ANION GAP 11 (5-19); ASPARTATE AMINO TRANSFERASE 16 U/L (14-36); BILIRUBIN,DIRECT 0.3 mg/dL (0.0-0.4); BILIRUBIN,TOTAL 0.5 mg/dL (0.2-1.3); BLOOD UREA NITROGEN 5 mg/dL (7-20); CALCIUM 9.3 mg/dL (8.4-10.2); CARBON DIOXIDE 28 mmol/L (22-30); CHLORIDE 103 mmol/L (98-107); GLUCOSE 103 mg/dL (75-110); POTASSIUM 3.9 mmol/L (3.6-5.0); SODIUM 141.6 mmol/L (137-145); TOTAL PROTEIN 6.9 g/dL (6.3-8.2)
[2019-01-25] MEDS ORDERED: CEFTRIAXONE 1 GM/D5W RTU 1 GM/50 ML RTUPB IV ONE ×2 (11:42→11:43)
[2019-01-25 15:20] VITALS: BP 99/54
== END 2019-01-25 13:12 | disposition home or self-care (01) ==
LOC: ER 08:40
DX: L02.413 Cutaneous abscess of right upper limb (principal); L03.113 Cellulitis of right upper limb; Z88.0 Allergy status to penicillin; Z88.6 Allergy status to analgesic agent
CPT/HCPCS: 99283; 96360; 36415; 87040; 87070; 87205; 85025; 87077; 80053; 10060; J3490 ×2; J0696

== ENCOUNTER 2019-02-16 12:48 | Emergency (ER) | payer MEDICAID ==
[2019-02-16 13:11] VITALS: BP 99/37
--- NOTE | 2019-02-16 13:44 | RADIOLOGY REPORT (SQ) ---
EXAM DESCRIPTION: FOOT LEFT COMPLETE COMPLETED DATE/TIME: 02/16/2019 1:28 pm REASON FOR STUDY: chair fell on foot COMPARISON: None. NUMBER OF VIEWS: Three views. TECHNIQUE: AP, lateral and oblique radiographic images acquired of the left foot. LIMITATIONS: None. FINDINGS: MINERALIZATION: Normal. BONES: No acute fracture or dislocation. No worrisome bone lesions. JOINTS: No effusions. SOFT TISSUES: No soft tissue swelling. No foreign body. OTHER: No other significant finding. IMPRESSION: NEGATIVE STUDY OF THE LEFT FOOT. NO RADIOGRAPHIC EVIDENCE OF ACUTE INJURY. TECHNICAL DOCUMENTATION: JOB ID: [id number] [employer]- All Rights Reserved Reading location - IP/workstation name: [email or web address]
--- NOTE | 2019-02-16 14:46 | ER Document Report ---
Addendum entered and electronically signed by TRACY CHAVARRIA PA-C 02/16/19 14:47: Discharge - Discharge Clinical Impression: Left foot pain Condition: Stable Disposition: HOME, SELF-CARE Additional Instructions: As reviewed, I cannot rule out an occult fracture and with ongoing symptoms you may need imaging in another 7 to 10 days. Rest, Ice, Compression, Elevation Tylenol/ibuprofen as needed Light stretches daily Strength exercises as able Moist heat and massage may help F/u with your PCP in 3-5 days for a recheck Consider consult(s) with Orthopedics/physical therapy for ongoing/worsening symptoms Return to the ED with any worsening symptoms and/or development of fever, headache, chest pain, palpitations, syncope, shortness of breath, trouble breathing, abdominal pain, n/v/d, muscle weakness/paralysis, numbness/tingling, swelling, redness, or other worsening symptoms that are concerning to you. Prescriptions: Cephalexin Monohydrate [Keflex 500 mg Capsule] 500 mg PO TID #30 capsule Meloxicam [Mobic 7.5 Mg Tablet] 7.5 mg PO BID PRN #14 tablet PRN Reason: Forms: Smoking Cessation Education Referrals: [facility] [Provider Group] - Follow up as needed Original Note: HPI - HPI Time Seen by Provider: 02/16/19 14:36 Pain Level: 3 Notes: Patient is a 38-year-old female no significant past medical history who presents complaining of left foot pain status post injury 2 days ago. Patient states that she dropped a chair on her foot at that time. Patient is that she has had swelling and pain since then. Pain does not radiate. She is able to limp at this time. Denies any headache, fever, neck pain, URI, sore throat, chest pain, palpitations, syncope, cough, shortness of breath, wheeze, dyspnea, abdominal pain, nausea/vomiting/diarrhea, urinary retention, dysuria, hematuria, loss of control of bowel or bladder, numbness/tingling, muscle paralysis/weakness, or rash. - ROS Systems Reviewed and Negative: Yes All other systems reviewed and negative - REPRODUCTIVE Reproductive: DENIES: : - DERM Skin Color: Normal Past Medical History - Social History Smoking Status: Current Every Day Smoker Chew tobacco use (# tins/day): No Frequency of alcohol use: Occasional Drug Abuse: Marijuana Family History: Reviewed & Not Pertinent, Hypertension Patient has suicidal ideation: No Patient has homicidal ideation: No Pulmonary Medical History: Denies: Hx Tuberculosis Neurological Medical History: Reports: Hx Migraine, Hx Seizures - x1 with Renal/ Medical History: Denies: Hx Peritoneal Dialysis GI Medical History: Reports: Hx Gastritis, Hx Gastroesophageal Reflux Disease - egd dr villanueva 2 years ago, Hx Colonoscopy - dr villanueva - polyps Past Surgical History: Reports: Hx Section - x 2, Hx Tubal Ligation. Denies: Hx Pacemaker - Immunizations Hx Diphtheria, Pertussis, Tetanus Vaccination: Yes Vertical Provider Document - CONSTITUTIONAL Agree With Documented VS: Yes Notes: PHYSICAL EXAMINATION: GENERAL: Well-appearing, well-nourished and in no acute distress. LUNGS: Breath sounds clear to auscultation bilaterally and equal. No wheezes rales or rhonchi. HEART: Regular rate and rhythm without murmurs, rubs, gallops. Musculoskeletal: Lt foot/ankle: + trace pitting edema/swelling left dorsal foot. Skin is warm. No ecchymosis or deformity. FROM to passive/active. Strength 5+/5. N/V intact distal. + tenderness to the dorsal foot. No bony tenderness of the ankle or calf. Achilles intact. Extremities: No cyanosis, clubbing, or edema b/l. Peripheral pulses 2+. Capillary refill less than 3 seconds. NEUROLOGICAL: Normal speech, limping gait. Normal sensory, motor exams PSYCH: Normal mood, normal affect. SKIN: Warm, Dry, normal turgor, no rashes or lesions noted. - INFECTION CONTROL TRAVEL OUTSIDE OF THE [place] IN LAST 30 DAYS: No Course - Re-evaluation Re-evalutation: 02/16/19 14:42 Patient is an afebrile, well-hydrated, 38-year-old female who presents to the ED with left foot pain which I suspect to be a contusion. She does have the swelling about the most consistent with a possible fracture cellulitis as well. Patient does have warmth to palpation of the dorsal foot without any obvious fluctuance or streaks. Vitals are acceptable without any significant tachycardia, tachypnea, or hypoxia. PE is otherwise unremarkable for any neurovascular compromise, obvious tendon/ligament rupture, obvious fracture/dislocation, septic joint. X-ray was unremarkable for any acute pathology. I did review with patient that I cannot rule out an occult fracture at this time. Crutches were provided today. Patient is nontoxic-appearing. Patient is able to ambulate and weight-bear although she is limping. No other labs or imaging warranted at this time based on H&P. I will send her home with a prescription for Keflex as precautionary. Conservative measures otherwise for symptoms. Recheck with your PCM in 3-5 days. Patient may need reimaging with ongoing discomfort. Consider consult orthopedics. Return to the ED with any worsening/concerning symptoms otherwise as reviewed in discharge. Patient is in agreement. - Vital Signs Vital signs: Temp Pulse Resp BP Pulse Ox 98.6 F 72 14 99/37 L 100 02/16/19 13:00 02/16/19 13:00 02/16/19 13:02/16/19 13:02/16/19 13:00 Discharge - Discharge Clinical Impression: Left foot pain Condition: Stable Disposition: HOME, SELF-CARE Additional Instructions: As reviewed, I cannot rule out an occult fracture and with ongoing symptoms you may need imaging in another 7 to 10 days. Rest, Ice, Compression, Elevation Tylenol/ibuprofen as needed Light stretches daily Strength exercises as able Moist heat and massage may help F/u with your PCP in 3-5 days for a recheck Consider consult(s) with Orthopedics/physical therapy for ongoing/worsening symptoms Return to the ED with any worsening symptoms and/or development of fever, headache, chest pain, palpitations, syncope, shortness of breath, trouble breathing, abdominal pain, n/v/d, muscle weakness/paralysis, numbness/tingling, swelling, redness, or other worsening symptoms that are concerning to you. Prescriptions: Cephalexin Monohydrate [Keflex 500 mg Capsule] 500 mg PO TID #30 capsule Forms: Smoking Cessation Education Referrals: [facility] [Provider Group] - Follow up as needed
[2019-02-16] MEDS ORDERED: KETOROLAC TROMETHAMINE INJ/PF 30 MG/1 ML SDV IM ONE (14:55)
== END 2019-02-16 15:30 | disposition home or self-care (01) ==
LOC: ER 12:48
DX: M79.672 Pain in left foot (principal); M79.89 Other specified soft tissue disorders; W20.8XXA Other cause of strike by thrown, projected or falling object, initial encounter; F17.200 Nicotine dependence, unspecified, uncomplicated
CPT/HCPCS: 99283; 96372; 73630; J1885